=== PATIENT | male | born 1950 | race Caucasian/White ===

== ENCOUNTER → 2017-08-18 11:04 | Outpatient (CLI) | payer MEDICARE, OTHER, SELFPAY ==
[2017-08-18 12:34] LABS: Thyroid Stimulating Hormone 1.48 uIU/mL (0.47-4.68)
== END ==
PROVIDERS: Visit Provider Internal Medicine
DX: E03.9 Hypothyroidism, unspecified (principal)
CPT/HCPCS: 36415; 84443

== ENCOUNTER → 2017-10-11 14:08 | Outpatient (CLI) | payer MEDICARE, OTHER, SELFPAY ==
[2017-10-11 15:38] LABS: BUN Creatinine Ratio 21.8 (6-22); Blood Urea Nitrogen 24 mg/dL (9-20); Calcium 10.4 mg/dL (8.4-10.2); Carbon Dioxide 29 mmol/L (22-32); Chloride 99 mmol/L (98-107); Estimated Glomerular Filt Rate > 60.0 mL/min (>60); Glucose 84 mg/dL (80-110); HEMOLYSIS < 15 (0-50); Potassium 3.5 mmol/L (3.4-5.1); Sodium 143 mmol/L (137-145); Uric Acid 8.1 mg/dL (3.5-8.5)
== END ==
PROVIDERS: Visit Provider Internal Medicine
DX: M10.9 Gout, unspecified (principal); I10 Essential (primary) hypertension
CPT/HCPCS: 36415; 80048; 84550

== ENCOUNTER → 2017-11-08 14:05 | Outpatient (CLI) | payer MEDICARE, OTHER, SELFPAY ==
[2017-11-08 15:25] LABS: BUN Creatinine Ratio 21.8 (6-22); Blood Urea Nitrogen 24 mg/dL (9-20); Calcium 10.8 mg/dL (8.4-10.2); Carbon Dioxide 35 mmol/L (22-32); Chloride 94 mmol/L (98-107); Estimated Glomerular Filt Rate > 60.0 mL/min (>60); Glucose 91 mg/dL (80-110); HEMOLYSIS < 15 (0-50); Sodium 140 mmol/L (137-145); Uric Acid 7.5 mg/dL (3.5-8.5)
== END ==
PROVIDERS: PCP Internal Medicine; Visit Provider Internal Medicine
DX: I10 Essential (primary) hypertension (principal); M10.9 Gout, unspecified
CPT/HCPCS: 36415; 80048; 84550

== ENCOUNTER → 2017-12-10 14:15 | Outpatient (CLI) | payer MEDICARE, OTHER, SELFPAY ==
[2017-12-10 15:26] LABS: Alanine Aminotransferase 39 IU/L (21-72); Albumin 4.7 g/dL (3.5-5.0); Albumin Globulin Ratio 1.6 (1.0-2.8); Alkaline Phosphatase 58 U/L (38-126); Aspartate Aminotransferase 35 IU/L (17-59); BUN Creatinine Ratio 20.9 (6-22); Bilirubin Total 0.6 mg/dL (0.2-1.3); Blood Urea Nitrogen 23 mg/dL (9-20); Calcium 10.2 mg/dL (8.4-10.2); Carbon Dioxide 30 mmol/L (22-32); Chloride 101 mmol/L (98-107); Estimated Glomerular Filt Rate > 60.0 mL/min (>60); Globulin 2.9 g/dL (1.7-4.1); Glucose 88 mg/dL (80-110); HEMOLYSIS < 15 (0-50); Potassium 4.2 mmol/L (3.4-5.1); Sodium 144 mmol/L (137-145); Total Protein 7.6 g/dL (6.3-8.2)
== END ==
PROVIDERS: Internal Medicine; PCP Nurse Practitioner Family; Visit Provider Nurse Practitioner Family
DX: E87.6 Hypokalemia (principal); I10 Essential (primary) hypertension
CPT/HCPCS: 36415; 80053

== ENCOUNTER → 2018-04-13 11:49 | Outpatient (CLI) | payer MEDICARE, OTHER, SELFPAY ==
--- NOTE | 2018-04-13 11:53 | DI.US.S_ITS ---
PROCEDURE: US ABD AORTA ANEURYSM SCREEN INDICATIONS: AAA SCREEN TECHNIQUE: Real time scanning was performed of the aorta and iliac arteries, with image documentation. COMPARISON: None. FINDINGS: Aorta: Proximal aortic diameter measures 2.1 cm. Mid-aorta measures 1.7 cm. Distal aortic diameter is 1.5 cm. Iliac arteries: Right common iliac artery measures 0.9 cm. Left common iliac artery measures 0.8 cm. IMPRESSION: Negative for aneurysm. Dictated by: Pito Cartagena M.D. on 04/13/2018 at 11:38 Approved by: Pito Cartagena M.D. on 04/13/2018 at 11:39
== END ==
PROVIDERS: PCP Student in an Organized Health Care Education/Training Program; Visit Provider Student in an Organized Health Care Education/Training Program
DX: Z13.6 Encounter for screening for cardiovascular disorders (principal); F17.200 Nicotine dependence, unspecified, uncomplicated
CPT/HCPCS: 76706

== ENCOUNTER → 2018-09-20 09:16 | Outpatient (CLI) | payer MEDICARE, OTHER, SELFPAY ==
[2018-09-20 09:56] LABS: Add Manual Diff / Slide Review NO; Basophils Absolute Auto 0 /uL (0-100); Basophils Percent Auto 0.2 % (0-2); Eosinophils Absolute Auto 0 /uL (0-450); Eosinophils Percent Auto 0.4 % (2-4); Hematocrit 45.1 % (41-53); Hemoglobin 15.8 g/dL (13.5-17.5); Lymphocytes Absolute Auto 1500 /uL (1100-4500); Lymphocytes Percent Auto 16.6 % (25-40); Mean Corpuscular HGB Conc 35.2 % (30-36); Mean Corpuscular Hemoglobin 33.5 PG (26-34); Mean Corpuscular Volume 95.2 fL (80-100); Monocytes Absolute Auto 700 /uL (0-900); Monocytes Percent Auto 7.4 % (3-14); Neutrophils Absolute Auto 6700 /uL (1500-7000); Neutrophils Percent Auto 75.4 % (50-75); Platelet Count 232 X10^3/uL (150-400); Red Blood Cell Count 4.73 X10^6/uL (4.5-5.9); Red Cell Distribution Width 13.3 % (11.6-14.8); White Blood Cell Count 8.9 X10^3/uL (4.5-11.0)
[2018-09-20 10:13] LABS: Alanine Aminotransferase 47 IU/L (21-72); Albumin Globulin Ratio 1.5 (1.0-2.8); Alkaline Phosphatase 51 U/L (38-126); Aspartate Aminotransferase 34 IU/L (17-59); Bilirubin Total 0.7 mg/dL (0.2-1.3); Blood Urea Nitrogen 27 mg/dL (9-20); Calcium 10.8 mg/dL (8.4-10.2); Carbon Dioxide 26 mmol/L (22-32); Chloride 107 mmol/L (98-107); Estimated Glomerular Filt Rate > 60.0 mL/min (>60); Globulin 3.3 g/dL (1.7-4.1); Glucose 103 mg/dL (80-110); HEMOLYSIS < 15 (0-50); Potassium 3.9 mmol/L (3.4-5.1); Sodium 143 mmol/L (137-145); Total Protein 8.3 g/dL (6.3-8.2)
[2018-09-20 10:17] LABS: C-Reactive Protein Quant < 0.5 mg/dL (<1.0)
== END ==
PROVIDERS: PCP Student in an Organized Health Care Education/Training Program; Visit Provider Student in an Organized Health Care Education/Training Program
DX: R10.9 Unspecified abdominal pain (principal); R53.81 Other malaise
CPT/HCPCS: 36415; 80053; 85025; 86140

== ENCOUNTER → 2018-12-13 08:07 | Outpatient (CLI) | payer MEDICARE, OTHER, SELFPAY ==
--- NOTE | 2018-12-13 | DI.MRI.S_ITS ---
PROCEDURE: MR SHOULDER RT WO CON INDICATIONS: Impingement syndrome of right shoulder TECHNIQUE: Noncontrast oblique coronal T2 fast spin echo with fat saturation, oblique sagittal T1 spin echo and T2 fast spin echo with fat saturation, axial T1 spin echo and T2 fast spin echo with fat saturation through the shoulder. COMPARISON: [facility], MR, SHOULDER WITHOUT CONTRAST, 01/27/2013, 7:53. [facility], MR, SHOULDER WITHOUT CONTRAST, 01/10/2013, 12:54. FINDINGS: Image quality: Diagnostic. Rotator cuff: Mild susceptibility artifact appears to be present overlying the distal aspect of the supraspinatus tendon near its insertion. The tear appears to be prominent thinning and moderate to high grade articular surface partial thickness tearing. The possibility of a small perforating full-thickness tear is difficult to exclude. Corresponding tendinopathy is present. There is mild increased signal involving the subscapularis and infraspinatus tendons. There may be areas of low to moderate grade articular surface partial thickness tearing of the subscapularis tendon. The teres minor tendon is intact. Moderate atrophy of the teres minor muscle is present. No additional areas of significant rotator cuff muscle atrophy are evident. Bones and bursae: No acute fracture, dislocation, or suspicious osseous lesion is identified involving the osseous structures of the right shoulder. There mild degenerative changes of the glenohumeral joint. There appear to be postsurgical changes of the acromioclavicular joint. There is a small glenohumeral joint effusion. A moderate amount of fluid is contained within the subacromial subdeltoid bursa. Capsule and soft tissues: Evaluation of the labrum and the glenohumeral ligaments is difficult to evaluate without intra-articular contrast. However, there is a small superior labral tear extending from the 11 o'clock position to the 1 o'clock position. There may be a small separate posteroinferior labral tear within the 7 o'clock position. The long head of the biceps tendon is partially subluxed from the bicipital groove; however, does appear to attach to the superior aspect of the glenoid. Thickening and increased signal involving the intra-articular portion of this tendon is present. No acute injuries are suspected involving the glenohumeral ligaments. IMPRESSION: 1. At least moderate to high-grade partial-thickness tearing of the distal supraspinatus tendon. A small perforating full-thickness tear is difficult to exclude. 2. Low to moderate grade partial-thickness tearing of the articular surface of the subscapularis tendon with corresponding tendinopathy. 3. Mild infraspinatus tendinopathy. 4. Moderate grade intrasubstance partial thickness tearing and tendinopathy involve the intra-articular portion of the biceps tendon. Disruption of the transverse ligament of the inter-bicipital groove appears present. 5. Small superior and posteroinferior labral tears. 6. Fluid within the subacromial subdeltoid bursa may represent bursitis. Please correlate clinically. Dictated by: Willard Abdullahi M.D. on 12/13/2018 at 9:12 Approved by: Willard Abdullahi M.D. on 12/13/2018 at 9:24
== END ==
PROVIDERS: PCP Student in an Organized Health Care Education/Training Program; Visit Provider Orthopaedic Surgery
DX: M75.41 Impingement syndrome of right shoulder (principal); M75.111 Incomplete rotator cuff tear or rupture of right shoulder, not specified as traumatic; S46.211A Strain of muscle, fascia and tendon of other parts of biceps, right arm, initial encounter
CPT/HCPCS: 73221

== ENCOUNTER → 2019-02-02 11:24 | Outpatient (CLI) | payer MEDICARE, OTHER, SELFPAY ==
[2019-02-02 12:12] LABS: Add Manual Diff / Slide Review NO; Basophils Absolute Auto 0 /uL (0-100); Basophils Percent Auto 0.5 % (0-2); Eosinophils Absolute Auto 0 /uL (0-450); Eosinophils Percent Auto 0.6 % (2-4); Hematocrit 44.2 % (41-53); Hemoglobin 15.3 g/dL (13.5-17.5); Lymphocytes Absolute Auto 1500 /uL (1100-4500); Mean Corpuscular HGB Conc 34.5 % (30-36); Mean Corpuscular Hemoglobin 32.8 PG (26-34); Mean Corpuscular Volume 94.8 fL (80-100); Monocytes Absolute Auto 600 /uL (0-900); Monocytes Percent Auto 8.1 % (3-14); Neutrophils Absolute Auto 5700 /uL (1500-7000); Neutrophils Percent Auto 71.8 % (50-75); Platelet Count 228 X10^3/uL (150-400); Red Blood Cell Count 4.66 X10^6/uL (4.5-5.9); Red Cell Distribution Width 12.8 % (11.6-14.8)
[2019-02-02 12:43] LABS: BUN Creatinine Ratio 22.7 (6-22); Blood Urea Nitrogen 25 mg/dL (9-20); Calcium 10.6 mg/dL (8.4-10.2); Carbon Dioxide 30 mmol/L (22-32); Chloride 99 mmol/L (98-107); Estimated Glomerular Filt Rate > 60.0 mL/min (>60); Glucose 82 mg/dL (80-110); HEMOLYSIS < 15 (0-50); Potassium 4.3 mmol/L (3.4-5.1); Sodium 140 mmol/L (137-145)
== END ==
PROVIDERS: PCP Student in an Organized Health Care Education/Training Program; Visit Provider Student in an Organized Health Care Education/Training Program
DX: K92.1 Melena (principal); K92.2 Gastrointestinal hemorrhage, unspecified; N18.9 Chronic kidney disease, unspecified
CPT/HCPCS: 80048; 85025

== ENCOUNTER → 2019-02-03 11:28 | Outpatient (CLI) | payer MEDICARE, OTHER, SELFPAY ==
[2019-02-03 13:17] LABS: Occult Blood 1 Negative (Negative)
== END ==
PROVIDERS: PCP Student in an Organized Health Care Education/Training Program; Visit Provider Student in an Organized Health Care Education/Training Program
DX: K92.1 Melena (principal)
CPT/HCPCS: 82270; 86677

== ENCOUNTER → 2019-02-27 15:01 | Outpatient (CLI) | payer MEDICARE, OTHER, SELFPAY ==
[2019-02-27 16:14] LABS: Phosphorous 4.2 mg/dL (2.3-3.7)
[2019-02-27 16:30] LABS: Vitamin D 25 Hydroxy (D3) 59.9 ng/mL (30.0-100.0)
[2019-03-02 14:30] LABS: Parathyroid Hormone Int 14 pg/mL (14-64)
== END ==
PROVIDERS: PCP Student in an Organized Health Care Education/Training Program; Visit Provider Student in an Organized Health Care Education/Training Program
DX: E83.52 Hypercalcemia (principal)
CPT/HCPCS: 36415; 82306; 83970; 84100

== ENCOUNTER → 2019-04-13 14:46 | Outpatient (CLI) | payer MEDICARE, OTHER, SELFPAY ==
[2019-04-13 16:32] LABS: Alanine Aminotransferase 45 IU/L (<50); Albumin 4.9 g/dL (3.5-5.0); Albumin Globulin Ratio 1.4 (1.0-2.8); Alkaline Phosphatase 67 U/L (38-126); Aspartate Aminotransferase 36 IU/L (17-59); BUN Creatinine Ratio 21.8 (6-22); Bilirubin Total 0.8 mg/dL (0.2-1.3); Blood Urea Nitrogen 24 mg/dL (9-20); Calcium 10.7 mg/dL (8.4-10.2); Carbon Dioxide 29 mmol/L (22-32); Chloride 99 mmol/L (98-107); Estimated Glomerular Filt Rate > 60.0 mL/min (>60); Globulin 3.4 g/dL (1.7-4.1); Glucose 77 mg/dL (80-110); HEMOLYSIS < 15 (0-50); Lipase 84 U/L (23-300); Sodium 139 mmol/L (137-145); Total Protein 8.3 g/dL (6.3-8.2)
[2019-04-13 17:04] LABS: TSH w/ Reflex to FT4 0.33 uIU/mL (0.47-4.68)
[2019-04-13 17:30] LABS: Free T4, Direct Thyroxine 1.34 ng/dL (0.78-2.19)
[2019-04-15 13:44] LABS: Ionized Calcium 5.2 mg/dL (4.8-5.6)
[2019-04-18 13:58] LABS: Albumin 4.3 g/dL (3.8-4.8); Alpha 1 Globulin 0.3 g/dL (0.2-0.3); Alpha 2 Globulin 1.1 g/dL (0.5-0.9); Beta 1 Globulin 0.4 g/dL (0.4-0.6); Gamma Globulin 0.8 g/dL (0.8-1.7); Protein, Total 7.3 g/dL (6.1-8.1)
== END ==
PROVIDERS: PCP Student in an Organized Health Care Education/Training Program; Visit Provider Student in an Organized Health Care Education/Training Program
DX: E83.52 Hypercalcemia (principal); M10.9 Gout, unspecified; R91.1 Solitary pulmonary nodule; R10.9 Unspecified abdominal pain; K52.9 Noninfective gastroenteritis and colitis, unspecified
CPT/HCPCS: 36415; 80053; 82330; 83519; 83690; 84155; 84165; 84439; 84443

== ENCOUNTER → 2019-06-15 09:39 | Outpatient (CLI) | payer MEDICARE, OTHER, SELFPAY ==
--- NOTE | 2019-06-15 | DI.US.S_ITS ---
PROCEDURE: US ABDOMEN COMPLETE INDICATIONS: RUQ PAIN TECHNIQUE: Real-time scanning was performed of the abdominal and retroperitoneal organs, with image documentation. COMPARISON: [facility], US ABDOMEN/RENAL AND/OR RETROPERITONEAL, 04/28/2005, 14:15. FINDINGS: Liver: Liver is diffusely increased in echogenicity. No focal hepatic abnormalities identified. Normal hepatic size. Gallbladder: Tiny stones present involving gallbladder fundus; otherwise normal appearance of the gallbladder. Biliary ducts: Intrahepatic bile ducts are non-dilated. Extrahepatic bile duct caliber measures 5.3 mm. Normal is 6-7 mm or less in diameter, or 10 mm or less post-cholecystectomy. Pancreas: Visualized portions of the pancreas are sonographically normal. Spleen: Spleen is normal in size and homogeneous in echotexture. Kidneys: Kidneys are normal in size and echotexture. Right kidney measures 10.3 cm long; left kidney measures 10.6 cm long. No hydronephrosis or nephrolithiasis. No solid masses. Aorta: Visualized aorta is normal in caliber at less than 3 cm. Iliacs: Proximal common iliac arteries are normal in caliber at less than 2.5 cm. IVC: Intrahepatic inferior vena cava is patent. Miscellaneous: No free abdominal fluid. IMPRESSION: Cholelithiasis without acute cholecystitis. If sonographically occult acute cholecystitis is suspected, nuclear medicine HIDA scan could be performed for further evaluation. Dictated by: Aram PRINCE Interpreted: Jessica Vaughn MD on 06/15/2019 at 11:09 Approved by: Jessica Vaughn M.D. on 06/15/2019 at 16:47
[2019-06-15 11:18] LABS: Alanine Aminotransferase 40 IU/L (<50); Albumin 4.9 g/dL (3.5-5.0); Albumin Globulin Ratio 1.6 (1.0-2.8); Alkaline Phosphatase 67 U/L (38-126); Aspartate Aminotransferase 38 IU/L (17-59); BUN Creatinine Ratio 17.7 (6-22); Bilirubin Total 0.7 mg/dL (0.2-1.3); Blood Urea Nitrogen 20 mg/dL (9-20); Calcium 10.5 mg/dL (8.4-10.2); Carbon Dioxide 29 mmol/L (22-32); Chloride 103 mmol/L (98-107); Estimated Glomerular Filt Rate > 60.0 mL/min (>60); Globulin 3.1 g/dL (1.7-4.1); Glucose 95 mg/dL (80-110); HEMOLYSIS < 15 (0-50); Lipase 46 U/L (23-300); Sodium 143 mmol/L (137-145); Uric Acid 7.4 mg/dL (3.5-8.5)
== END ==
PROVIDERS: PCP Student in an Organized Health Care Education/Training Program; Referring Provider Internal Medicine; Visit Provider Internal Medicine
DX: R10.11 Right upper quadrant pain (principal); K80.20 Calculus of gallbladder without cholecystitis without obstruction; M10.00 Idiopathic gout, unspecified site
CPT/HCPCS: 36415; 76700; 80053; 83690; 84550

== ENCOUNTER → 2019-06-27 08:03 | Outpatient (CLI) | payer MEDICARE, OTHER, SELFPAY ==
--- NOTE | 2019-06-27 | DI.NM.S_ITS ---
PROCEDURE: NM HIDA WITH CCK PHARMACEUTICAL: 5.4 mCi Tc-99m mebrofenin IV; 1.6 mcg CCK IV. INDICATIONS: Right upper quadrant pain TECHNIQUE: Following intravenous administration of Tc-99m mebrofenin, sequential anterior abdominal images were obtained. To evaluate the contractile response of the gallbladder in response to Cholecystokinin (CCK), sincalide (0.02 ?g/kg) was administered by slow intravenous infusion approximately 60 minutes after the administration of the radiopharmaceutical. Sequential imaging was continued for 30 minutes after the start of CCK infusion. Gallbladder ejection fraction was calculated. COMPARISON: [facility], , US ABDOMEN COMPLETE, 06/15/2019, 9:56. FINDINGS: Biliary scan: There is normal tracer uptake and excretion by the liver. There is normal visualization of the intrahepatic ducts, common bile duct, and gallbladder. There is normal tracer transit into the duodenum. Mild bile reflux into the stomach. CCK stimulation: There is normal contractile response of the gallbladder to CCK infusion. The calculated gallbladder ejection fraction is 87%; normal values are above 35%. IMPRESSION: 1. Normal filling of gallbladder. No evidence for acute cholecystitis. 2. Normal contractile response of gallbladder to CCK stimulation. Dictated by: Lorin Ramires M.D. on 06/27/2019 at 16:10 Approved by: Lorin Ramires M.D. on 06/27/2019 at 16:13
== END ==
PROVIDERS: PCP Internal Medicine; Referring Provider Student in an Organized Health Care Education/Training Program; Visit Provider Internal Medicine
DX: R10.11 Right upper quadrant pain (principal)
CPT/HCPCS: 78227; A9537; J2805

== ENCOUNTER → 2019-10-21 08:28 | Outpatient (CLI) | payer MEDICARE, OTHER, SELFPAY ==
[2019-10-21 09:44] LABS: Alanine Aminotransferase 51 IU/L (<50); Albumin 4.7 g/dL (3.5-5.0); Albumin Globulin Ratio 1.8 (1.0-2.8); Alkaline Phosphatase 63 U/L (38-126); Aspartate Aminotransferase 45 IU/L (17-59); Bilirubin Total 0.8 mg/dL (0.2-1.3); Blood Urea Nitrogen 23 mg/dL (9-20); Calcium 10.1 mg/dL (8.4-10.2); Carbon Dioxide 26 mmol/L (22-32); Chloride 102 mmol/L (98-107); Cholesterol 197 mg/dL (140-199); Estimated Glomerular Filt Rate > 60.0 mL/min (>60); Globulin 2.6 g/dL (1.7-4.1); Glucose 116 mg/dL (80-110); HDL Cholesterol 52 mg/dL (40-60); HEMOLYSIS < 15 (0-50); LDL Cholesterol Calculated 102 mg/dL (<100); Potassium 4.3 mmol/L (3.4-5.1); Sodium 136 mmol/L (137-145); Total Protein 7.3 g/dL (6.3-8.2); Triglycerides 215 mg/dL (35-150); Uric Acid 6.1 mg/dL (3.5-8.5)
[2019-10-21 09:49] LABS: Free T4, Direct Thyroxine 1.34 ng/dL (0.78-2.19)
[2019-10-21 10:03] LABS: Thyroid Stimulating Hormone 0.294 uIU/mL (0.47-4.68)
[2019-10-22 07:07] LABS: Triiodothyronine T3 Total 103 ng/dL (71-180)
== END ==
PROVIDERS: PCP Internal Medicine; Referring Provider Internal Medicine; Visit Provider Internal Medicine
DX: M10.9 Gout, unspecified (principal); E03.9 Hypothyroidism, unspecified; I10 Essential (primary) hypertension
CPT/HCPCS: 36415; 80053; 80061; 84439; 84443; 84480; 84550

== ENCOUNTER → 2020-05-15 09:02 | Outpatient (CLI) | payer MEDICARE, SELFPAY ==
--- NOTE | 2020-05-15 09:04 | DI.US.S_ITS ---
PROCEDURE: US ABDOMEN COMPLETE INDICATIONS: abdominal pain TECHNIQUE: Real-time scanning was performed of the abdominal and retroperitoneal organs, with image documentation. COMPARISON: [facility], US, US ABDOMEN COMPLETE, 06/15/2019, 9:56. FINDINGS: Liver: The liver demonstrates mildly prominent size. The liver demonstrates generalized moderately increased echogenicity. This decreases ultrasound sensitivity for detection of hepatic masses. Gallbladder: No findings of gallstones or sludge are seen. The gallbladder wall is not thickened, measuring 3 mm or less. No specific pericholecystic fluid is seen. The sonographic Adrian sign is negative. Biliary ducts: Intrahepatic bile ducts are non-dilated. Extrahepatic bile duct caliber measures 2-3 mm. Normal is 6-7 mm or less in diameter, or 10 mm or less post-cholecystectomy. Pancreas: Visualized portions of the pancreas are sonographically normal. Spleen: Spleen is normal in size and homogeneous in echotexture. Kidneys: Kidneys are normal in size and echotexture. Right kidney measures 10.7 cm long; left kidney measures 11 cm long. No hydronephrosis or nephrolithiasis. No solid masses. Aorta: Visualized aorta is normal in caliber at less than 3 cm. Iliacs: Proximal common iliac arteries are normal in caliber at less than 2.5 cm. IVC: Intrahepatic inferior vena cava is patent. Miscellaneous: No free abdominal fluid. IMPRESSION: The gallbladder demonstrates a normal sonographic appearance. No biliary dilatation is seen. The liver demonstrates increased echogenicity. This finding is nonspecific, yet it is most commonly attributed to fatty infiltration. Dictated by: Pito Cartagena M.D. on 05/15/2020 at 10:02 Approved by: Pito Cartagena M.D. on 05/15/2020 at 10:03
[2020-05-15 10:30] LABS: Alanine Aminotransferase 68 IU/L (<50); Albumin 4.6 g/dL (3.5-5.0); Albumin Globulin Ratio 1.6 (1.0-2.8); Alkaline Phosphatase 64 U/L (38-126); Aspartate Aminotransferase 73 IU/L (17-59); BUN Creatinine Ratio 17.7 (6-22); Blood Urea Nitrogen 22 mg/dL (9-20); Calcium 9.9 mg/dL (8.4-10.2); Carbon Dioxide 31 mmol/L (22-32); Chloride 101 mmol/L (98-107); Cholesterol 181 mg/dL (140-199); Globulin 2.9 g/dL (1.7-4.1); Glucose 104 mg/dL (80-110); HDL Cholesterol 57 mg/dL (40-60); HEMOLYSIS < 15 (0-50); LDL Cholesterol Calculated 99 mg/dL (<100); Magnesium 1.8 mg/dL (1.6-2.3); Potassium 4.4 mmol/L (3.4-5.1); Sodium 138 mmol/L (137-145); Total Protein 7.5 g/dL (6.3-8.2); Triglycerides 125 mg/dL (35-150)
[2020-05-15 11:11] LABS: Thyroid Stimulating Hormone 0.733 uIU/mL (0.47-4.68)
== END ==
PROVIDERS: PCP Nurse Practitioner; Referring Provider Nurse Practitioner; Visit Provider Nurse Practitioner
DX: I12.9 Hypertensive chronic kidney disease with stage 1 through stage 4 chronic kidney disease, or unspecified chronic kidney disease (principal); N18.9 Chronic kidney disease, unspecified; R10.9 Unspecified abdominal pain; E03.9 Hypothyroidism, unspecified; E78.5 Hyperlipidemia, unspecified; R25.2 Cramp and spasm; Z79.899 Other long term (current) drug therapy
CPT/HCPCS: 36415; 76700; 80053; 80061; 83735; 84443

== ENCOUNTER → 2020-05-29 12:48 | Outpatient (CLI) | payer MEDICARE, SELFPAY ==
[2020-05-30 04:44] LABS: HBsAg Screen Negative (Negative); Hepatitis A Antibody IgM Negative (Negative); Hepatitis B Core Antibody IgM Negative (Negative); Hepatitis C Antibody 0.1 s/co ratio (0.0-0.9)
== END ==
PROVIDERS: PCP Nurse Practitioner; Referring Provider Nurse Practitioner; Visit Provider Nurse Practitioner
DX: R79.89 Other specified abnormal findings of blood chemistry (principal)
CPT/HCPCS: 36415; 80074

== ENCOUNTER → 2020-08-03 13:05 | Outpatient (CLI) | payer MEDICARE, SELFPAY ==
--- NOTE | 2020-08-03 13:08 | DI.MRI.S_ITS ---
PROCEDURE: MR LUMBAR SPINE WO CON INDICATIONS: Radiculopathy, lumbar region TECHNIQUE: Noncontrast sagittal T1 spin echo and T2 fast echo, coronal T2, sagittal STIR, axial T1 and T2 fast spin echo through the lumbar spine. COMPARISON: [facility], , L-SPINE WITHOUT CONTRAST, 12/19/2007, 9:45. FINDINGS: Image quality: Excellent. Alignment and Curvature: There is loss of normal lumbar lordosis. There is mild, grade 1 retrolisthesis of L2 on L3, L4 on L5, and L5 on S1. Bone Marrow: Marrow is of normal overall signal. No acute vertebral body compression fractures. There is moderate reactive signal within the endplates adjacent to the L3-L4, L4-L5, and L5-S1 intervertebral discs. Mild reactive signal within the endplates adjacent to the T11-T12, T12-L1, and L1-L2 intervertebral discs. L3 laminectomy. Left L4-L5 hemilaminotomy. Spinal Cord: Conus medullaris terminates at the mid L1 level. Visualized cord demonstrates normal signal and size. Paraspinous Soft Tissues: No paravertebral masses. T12-L1: Moderate disc height loss and desiccation. Mild diffuse disc bulge. Mild facet and ligamentum flavum hypertrophy. Mild canal stenosis. No foraminal stenosis. L1-L2: Mild disc height loss and desiccation. Mild diffuse disc bulge. Mild facet and ligamentum flavum hypertrophy. Mild epidural lipomatosis. Mild canal stenosis. Mild bilateral foraminal stenosis. No significant change. L2-L3: Moderate disc height loss and desiccation. Moderate diffuse disc bulge. Mild facet and ligamentum flavum hypertrophy. Mild canal stenosis. Mild right and moderate left foraminal stenosis. No significant change. L3-L4: Severe disc height loss and desiccation. Moderate diffuse disc bulge/osteophyte with superimposed left far lateral protrusion/osteophyte. Mild bilateral facet hypertrophy. Mild canal stenosis. Moderate to severe left and moderate right foraminal stenosis. Mild left L3 nerve root compression. No significant change. L4-L5: Severe disc height loss and desiccation. Mild diffuse disc bulge. Mild facet and ligamentum flavum hypertrophy. Mild canal stenosis. Moderate right and mild left foraminal stenosis. No significant change. L5-S1: Moderate disc height loss and desiccation. Moderate diffuse disc bulge with superimposed right paracentral protrusion. Moderate facet and ligamentum flavum hypertrophy. Moderate canal stenosis. Moderate subarticular foraminal stenosis bilaterally. No significant change. IMPRESSION: 1. Multilevel degenerative disc and facet disease, as well as ligamentum flavum hypertrophy and epidural lipomatosis. 2. Multilevel canal stenoses, worst at L5-S1, where there is moderate canal stenosis. 3. Multilevel foraminal stenoses, worst at L3-L4 where there is associated intraforaminal nerve root compression. Recommend correlation with clinical symptoms to ascertain relevance of this finding. Dictated by: Jessica Vaughn M.D. on 08/05/2020 at 9:12 Approved by: Jessica Vaughn M.D. on 08/05/2020 at 9:37
== END ==
PROVIDERS: PCP Nurse Practitioner; Referring Provider Orthopaedic Surgery; Visit Provider Orthopaedic Surgery
DX: M51.16 Intervertebral disc disorders with radiculopathy, lumbar region (principal); M51.17 Intervertebral disc disorders with radiculopathy, lumbosacral region; M48.061 Spinal stenosis, lumbar region without neurogenic claudication; M48.07 Spinal stenosis, lumbosacral region
CPT/HCPCS: 72148

== ENCOUNTER → 2020-08-28 10:35 | Outpatient (CLI) | payer MEDICARE, SELFPAY ==
[2020-08-28 12:20] LABS: Prostate Specific Antigen 3.42 ng/mL (0.10-4.00)
== END ==
PROVIDERS: PCP Nurse Practitioner; Referring Provider Specialist; Visit Provider Specialist
DX: Z12.5 Encounter for screening for malignant neoplasm of prostate (principal)
CPT/HCPCS: 36415; 84153

== ENCOUNTER → 2020-09-04 11:53 | Outpatient (CLI) | payer MEDICARE, SELFPAY | PROVIDERS: PCP Nurse Practitioner; Visit Provider Specialist | DX: N39.0 Urinary tract infection, site not specified (principal) | CPT/HCPCS: 51798; 81002; 87086; 99214 ==

== ENCOUNTER → 2020-10-10 08:08 | Outpatient (CLI) | payer MEDICARE, SELFPAY ==
[2020-10-10 09:19] LABS: Alanine Aminotransferase 42 IU/L (<50); Albumin 4.5 g/dL (3.5-5.0); Albumin Globulin Ratio 1.5 (1.0-2.8); Alkaline Phosphatase 61 U/L (38-126); Aspartate Aminotransferase 63 IU/L (17-59); BUN Creatinine Ratio 24.2 (6-22); Bilirubin Total 0.7 mg/dL (0.2-1.3); Blood Urea Nitrogen 31 mg/dL (9-20); Calcium 10.1 mg/dL (8.4-10.2); Carbon Dioxide 29 mmol/L (22-32); Chloride 101 mmol/L (98-107); Cholesterol 217 mg/dL (140-199); Estimated Glomerular Filt Rate 55.7 mL/min (>60); Glucose 113 mg/dL (80-110); HDL Cholesterol 53 mg/dL (40-60); HEMOLYSIS < 15 (0-50); LDL Cholesterol Calculated 121 mg/dL (<100); Potassium 4.1 mmol/L (3.4-5.1); Sodium 138 mmol/L (137-145); Total Protein 7.5 g/dL (6.3-8.2); Triglycerides 217 mg/dL (35-150)
[2020-10-10 09:46] LABS: Thyroid Stimulating Hormone 0.065 uIU/mL (0.47-4.68)
[2020-10-10 09:48] LABS: Creatinine Urine Random 100.7 mg/dL
[2020-10-10 09:55] LABS: Microalbumi Creatinin Ratio Ur 6.9 ug/mg CR (<30); Microalbumin Urine Random 0.7 mg/dL (0-1.6)
== END ==
PROVIDERS: PCP Nurse Practitioner; Referring Provider Nurse Practitioner; Visit Provider Nurse Practitioner
DX: E03.9 Hypothyroidism, unspecified (principal); I10 Essential (primary) hypertension; E78.2 Mixed hyperlipidemia; F33.9 Major depressive disorder, recurrent, unspecified; N18.2 Chronic kidney disease, stage 2 (mild); Z79.899 Other long term (current) drug therapy
CPT/HCPCS: 36415; 80053; 80061; 82043; 82570; 84443

== ENCOUNTER 2020-10-19 21:19 | Emergency (ER) | payer MEDICARE, SELFPAY ==
[2020-10-19 21:49] VITALS: BP 105/60; PULSE 97; RESP 18; TEMP 36.6; O2SAT 96; BMI 28.2
[2020-10-19 22:02] VITALS: PULSE 98; O2SAT 97
[2020-10-19 22:04] VITALS: BP 110/61; PULSE 98; RESP 22; O2SAT 96
[2020-10-19 22:27] LABS: Add Manual Diff / Slide Review NO; Basophils Absolute Auto 0 /uL (0-100); Basophils Percent Auto 0.4 % (0-2); Eosinophils Absolute Auto 100 /uL (0-450); Eosinophils Percent Auto 0.7 % (2-4); Hematocrit 43.8 % (41-53); Hemoglobin 15.1 g/dL (13.5-17.5); Lymphocytes Absolute Auto 1900 /uL (1100-4500); Mean Corpuscular HGB Conc 34.4 % (30-36); Mean Corpuscular Hemoglobin 32.6 PG (26-34); Mean Corpuscular Volume 94.6 fL (80-100); Monocytes Absolute Auto 900 /uL (0-900); Monocytes Percent Auto 8.2 % (3-14); Neutrophils Absolute Auto 8200 /uL (1500-7000); Neutrophils Percent Auto 73.7 % (50-75); Platelet Count 284 X10^3/uL (150-400); Red Blood Cell Count 4.63 X10^6/uL (4.5-5.9); Red Cell Distribution Width 13.8 % (11.6-14.8); White Blood Cell Count 11.1 X10^3/uL (4.5-11.0)
[2020-10-19 22:28] LABS: Alanine Aminotransferase 41 IU/L (<50); Albumin 4.4 g/dL (3.5-5.0); Albumin Globulin Ratio 1.6 (1.0-2.8); Alkaline Phosphatase 59 U/L (38-126); Aspartate Aminotransferase 51 IU/L (17-59); BUN Creatinine Ratio 14.3 (6-22); Bilirubin Total 0.5 mg/dL (0.2-1.3); Blood Urea Nitrogen 33 mg/dL (9-20); Calcium 9.5 mg/dL (8.4-10.2); Carbon Dioxide 20 mmol/L (22-32); Chloride 105 mmol/L (98-107); Creatine Kinase 645 U/L (55-170); Estimated Glomerular Filt Rate 28.3 mL/min (>60); Globulin 2.8 g/dL (1.7-4.1); Glucose 160 mg/dL (80-110); HEMOLYSIS < 15 (0-50); Lipase 144 U/L (23-300); Potassium 4.1 mmol/L (3.4-5.1); Sodium 140 mmol/L (137-145); Total Protein 7.2 g/dL (6.3-8.2)
[2020-10-19 22:30] VITALS: BP 87/53; PULSE 94; RESP 15; O2SAT 93
[2020-10-19] MEDS: SODIUM CHLORIDE 0.9% 1,000 ML 1000 ML IV (22:37)
[2020-10-19 22:40] LABS: Troponin I < 0.012 ng/mL (0.01-0.034)
[2020-10-19 22:43] LABS: CKMB % Relative Index 1.1 % (1.5-5.0); Creatine Kinase MB 7.23 ng/mL (<2.37)
[2020-10-19 23:00] VITALS: BP 117/68; PULSE 92; RESP 26; O2SAT 96
--- NOTE | 2020-10-19 23:01 | ED_ITS ---
HPI - General Adult General Chief complaint: Dizziness Stated complaint: states almost passed out twice today Time Seen by Provider: 10/19/20 21:56 Source: patient Mode of arrival: Ambulatory Limitations: no limitations History of Present Illness HPI narrative: Patient is a 70-year-old male. Does have a history of high blood pressure. Is on medications for this. He states that over the past couple months he has had episodes where he becomes very lightheaded. During these times he takes his blood pressure and it is low. He has talk with his primary doctor about this. Was recently taken off of his hydrochlorothiazide. He states that today he was at a wedding when the episodes happened multiple times. He was not able to take his blood pressure the time but it feels just like what it has been low in the past. No chest pain. No shortness of breath. He actually did not pass out. He also states that he did not have much water to drink today. He also had some alcoholic beverages today. Him into the emergency department because of how he was feeling. Related Data Previous Rx's Medication Instructions Recorded amlodipine 10 mg tablet 10 mg PO DAILY #90 tab 05/11/19 betamethasone valerate 0.1 % 1 applic TOP BID #15 gram 05/07/20 topical cream levothyroxine 125 mcg tablet 125 mcg PO DAILY #90 tab 05/24/20 (Levoxyl) allopurinol 100 mg tablet 200 mg PO DAILY #180 tab 06/11/20 venlafaxine 37.5 mg 75 mg PO QPM #180 cap 07/18/20 capsule,extended release 24 hr cyclobenzaprine 10 mg tablet 10 mg PO BEDTIME PRN #20 tab 07/24/20 losartan 100 mg tablet 100 mg PO DAILY #90 tab 08/13/20 celecoxib 100 mg capsule 100 mg PO BID #180 cap 09/10/20 dicyclomine 20 mg tablet 20 mg PO TID PRN #30 tab 09/11/20 Allergies Allergy/AdvReac Type Severity Reaction Status Date / Time metronidazole [METRONIDAZOLE] Allergy Unknown Verified 10/19/20 21:48 diflunisal Allergy Verified 10/19/20 21:48 PAIN MANAGEMENT CONTRACT Allergy Unknown Uncoded 10/19/20 21:48 Review of Systems Constitutional Comments: No fevers Eyes Comments: No vision changes ENT Ears, Nose, Mouth, and Throat: Reports system reviewed and no additional complaints, except as documented, Denies vertigo and Reports dizziness Cardiovascular Cardiovascular: Denies chest pain, Reports lightheadedness and Denies dyspnea Respiratory Respiratory: Denies cough and Denies dyspnea Gastrointestinal Gastrointestinal: Reports system reviewed and no additional complaints, except as documented Musculoskeletal Musculoskeletal: Reports system reviewed and no additional complaints, except as documented Integumentary/Breasts Skin/Breast: Reports system reviewed and no additional complaints, except as documented Neurologic Neurologic: Reports system reviewed and no additional complaints, except as documented, Denies abnormal speech, Denies vertigo and Reports dizziness Psychiatric Psychiatric: Reports system reviewed and no additional complaints, except as documented Hematologic/Lymphatic On Anticoagulants: No Allergic/Immunologic Allergic/Immunologic: Reports system reviewed and no additional complaints, except as documented Patient History Medical History Arthralgia Chronic back pain Chronic kidney disease Chronic sinusitis (2015) Colon polyps (2006) Discoloration of skin of face Gout (2009) Gout Hyperlipidemia Hypertension Hypothyroidism (2012) Lower urinary tract symptoms (LUTS) Osteoarthritis Osteoarthritis Peripheral neuropathy Peripheral neuropathy, idiopathic Polyp of colon (01/01/14) 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) Pulmonary nodule Sinusitis Sleep apnea Surgical History History of arthroscopy of left knee History of bilateral carpal tunnel release History of lumbar surgery History of surgery Social History Smoking Status: Current every day smoker Smoking Status: Current every day smoker tobacco type: vaping Substance Use Type: does not use Exam Initial Vital Signs Initial Vital Signs: Vital Signs Temperature 97.9 F 10/19/20 21:49 Pulse Rate 97 H 10/19/20 21:49 Respiratory Rate 18 10/19/20 21:49 Blood Pressure 105/60 10/19/20 21:49 Pulse Oximetry 96 10/19/20 21:49 Const General: cooperative and healthy appearing HENMT Head: normal to inspection and normocephalic Eyes General: appearance normal, both eyes and all related structures Resp Effort & Inspection: normal respiratory effort Auscultation: clear to auscultation bilaterally Cardio Rate: regular rate Rhythm: regular rhythm GI Inspection: normal to inspection Skin Lesions: no lesions Neuro General: patient alert, patient awake, patient oriented x3 and moves all extremities Extrem General: normal to inspection and capillary refill normal Psych Appearance: grossly normal and well kempt Course Orders Ordered: ED Orders 10/19/20 21:57 EKG-12 Lead Stat 10/19/20 22:10 Complete Blood Count AUTO DIFF Stat Comprehensive Metabolic Panel Stat Lipase Stat Troponin & CK Cardiac Panel Stat Discontinued Medications Sodium Chloride (Normal Saline 0.9%) 1,000 mls @ 1,000 mls/hr IV BOLUS ONE Stop: 10/19/20 22:55 Last Infusion: 10/19/20 23:43 Dose: 0 mls/hr Documented by: Admin: 10/19/20 22:37 Dose: 1,000 mls/hr Documented by: CTRCLAIR Vital Signs Vital signs: Vital Signs - 8 hr 10/19/20 22:30 10/19/20 23:00 10/19/20 23:30 Pulse Rate 94 H 92 H 97 H Respiratory Rate 15 26 H 27 H Blood Pressure 87/53 L 117/68 Pulse Oximetry 93 96 95 Medical Decision Making Lab Data Lab results reviewed: Yes I reviewed the patient's lab results. Result diagrams: 10/19/20 22:10 10/19/20 22:10 Labs: Lab Results 10/19/20 10/19/20 Range/Units 22:10 22:10 WBC 11.1 H (4.5-11.0) X10^3/uL RBC 4.63 (4.5-5.9) X10^6/uL Hgb 15.1 (13.5-17.5) g/dL Hct 43.8 (41-53) % MCV 94.6 (80-100) fL MCH 32.6 (26-34) PG MCHC 34.4 (30-36) % RDW 13.8 (11.6-14.8) % Plt Count 284 (150-400) X10^3/uL Neut % (Auto) 73.7 (50-75) % Lymph % (Auto) 17.0 L (25-40) % [place] % (Auto) 8.2 (3-14) % Eos % (Auto) 0.7 L (2-4) % Baso % (Auto) 0.4 (0-2) % Neut # (Auto) 8200 H (3380-0219) /uL Lymph # (Auto) 1900 (5444-0456) /uL [place] # (Auto) 900 (0-900) /uL Eos # (Auto) 100 (0-450) /uL Baso # (Auto) 0 (0-100) /uL Sodium 140 (137-145) mmol/L Potassium 4.1 (3.4-5.1) mmol/L Chloride 105 (98-107) mmol/L Carbon Dioxide 20 L (22-32) mmol/L BUN 33 H (9-20) mg/dL Creatinine 2.30 H (0.66-1.25) mg/dL Estimated GFR 28.3 L (>60) mL/min BUN/Creatinine Ratio 14.3 (6-22) Glucose 160 H (80-110) mg/dL Calcium 9.5 (8.4-10.2) mg/dL Total Bilirubin 0.5 (0.2-1.3) mg/dL AST 51 (17-59) IU/L ALT 41 (<50) IU/L Alkaline Phosphatase 59 (38-126) U/L Total Creatine Kinase 645 H (55-170) U/L CK-MB (CK-2) 7.23 H (<2.37) ng/mL CK-MB (CK-2) Rel Index 1.1 L (1.5-5.0) % Troponin I < 0.012 (0.01-0.034) ng/mL Total Protein 7.2 (6.3-8.2) g/dL Albumin 4.4 (3.5-5.0) g/dL Globulin 2.8 (1.7-4.1) g/dL Albumin/Globulin Ratio 1.6 (1.0-2.8) Lipase 144 (23-300) U/L ECG Data Attestation: I personally reviewed and interpreted this ECG as follows: Interpretation: Sinus rhythm Ventricular rate 98 Normal axis Normal QRS Normal QTC Nonspecific ST T wave changes MDM Narrative Medical decision making narrative: Patient has a relatively unremarkable exam here in the emergency department. His EKG is unremarkable. Labs unremarkable. I suspect that his symptoms are related to him becoming hypotensive. He states he takes his blood pressure medication in the morning and it is in the afternoon evening when he gets most of the symptoms. This would be 1 I would expect his blood pressure medication to be at its most effective. He has taken his blood pressure before during these times and it is fact low. I do feel this is a blood sugar issue. Do not feel this is a dehydration issue although that may have added to his problems from today. The plan will be is to take him off his blood pressure medicine. I feel that it is better for him to run somewhat high on his blood pressure over the next couple days rather than drop low. I did discuss this with him and he will continue to take his blood pressures at home like we discussed. He has a follow-up with his primary doctor any schedule next week and I recommended that he keep this appointment. Was given return precautions and follow-up instructions. He expressed understanding and agreement. Discharge Plan Departure Patient Disposition: Home Clinical Impression: Hypotension Instructions: Blood Pressure Testing and Measurement Activity Restrictions/Additional Instructions: Based on our discussion today current recommendation is that you stop taking your losartan. For the time being it is better for you to have a slightly higher blood pressure rather than blood pressures after dropping which I suspect is what is causing your presenting symptoms. Keep all of your scheduled medical appointments. Continue the rest of your medications as directed. Contact your primary provider for follow-up. Return to the emergency department for any new or worsening symptoms Prescriptions: No Action amlodipine 10 mg tablet 10 mg PO DAILY Qty: 90 RF: 3 Hold Instructions: transition to Pregabalin levothyroxine [Levoxyl] 125 mcg tablet 125 mcg PO DAILY Qty: 90 RF: 3 cyclobenzaprine 10 mg tablet 10 mg PO BEDTIME PRN (Reason: muscle spasm) Qty: 20 RF: 2 losartan 100 mg tablet 100 mg PO DAILY Qty: 90 RF: 3 celecoxib 100 mg capsule 100 mg PO BID Qty: 180 RF: 3 dicyclomine 20 mg tablet 20 mg PO TID PRN (Reason: abd pain) Qty: 30 RF: 2 betamethasone valerate 0.1 % cream 1 applic TOP BID Qty: 15 RF: 1 allopurinol 100 mg tablet 200 mg PO DAILY Qty: 180 RF: 3 venlafaxine 37.5 mg capsule,extended release 24hr 75 mg PO QPM Qty: 180 RF: 3 Referrals: Odalys Prado ARNP [Primary Care Provider] -
[2020-10-19 23:30] VITALS: PULSE 97; RESP 27; O2SAT 95
== END 2020-10-19 23:57 | disposition home or self-care (01) ==
PROVIDERS: Emergency Provider Emergency Medicine; PCP Nurse Practitioner
DX: I95.9 Hypotension, unspecified (principal); R07.9 Chest pain, unspecified
CPT/HCPCS: 36415; 80053; 82550; 82553; 83690; 84484; 85025; 93005; 96360; 99284

== ENCOUNTER → 2021-03-03 14:10 | Outpatient (CLI) | payer MEDICARE, SELFPAY ==
[2021-03-03 15:32] LABS: Alanine Aminotransferase 41 IU/L (<50); Albumin 4.5 g/dL (3.5-5.0); Albumin Globulin Ratio 1.7 (1.0-2.8); Alkaline Phosphatase 60 U/L (38-126); Aspartate Aminotransferase 41 IU/L (17-59); BUN Creatinine Ratio 19.4 (6-22); Bilirubin Total 0.7 mg/dL (0.2-1.3); Blood Urea Nitrogen 20 mg/dL (9-20); Calcium 9.9 mg/dL (8.4-10.2); Carbon Dioxide 25 mmol/L (22-32); Chloride 104 mmol/L (98-107); Cholesterol 215 mg/dL (140-199); Estimated Glomerular Filt Rate > 60.0 mL/min (>60); Globulin 2.6 g/dL (1.7-4.1); Glucose 96 mg/dL (80-110); HDL Cholesterol 52 mg/dL (40-60); HEMOLYSIS < 15 (0-50); LDL Cholesterol Calculated 102 mg/dL (<100); Potassium 4.3 mmol/L (3.4-5.1); Sodium 140 mmol/L (137-145); Total Protein 7.1 g/dL (6.3-8.2); Triglycerides 307 mg/dL (35-150)
[2021-03-03 15:43] LABS: Hematocrit 44.2 % (41-53); Mean Corpuscular HGB Conc 33.9 % (30-36); Mean Corpuscular Hemoglobin 31.5 PG (26-34); Platelet Count 247 X10^3/uL (150-400); Red Blood Cell Count 4.75 X10^6/uL (4.5-5.9); Red Cell Distribution Width 13.3 % (11.6-14.8); White Blood Cell Count 7.1 X10^3/uL (4.5-11.0)
[2021-03-03 15:56] LABS: Creatinine Urine Random 44.2 mg/dL
[2021-03-03 16:00] LABS: Microalbumi Creatinin Ratio Ur 13.5 ug/mg CR (<30); Microalbumin Urine Random 0.6 mg/dL (0-1.6)
[2021-03-03 16:03] LABS: Thyroid Stimulating Hormone 0.374 uIU/mL (0.47-4.68)
== END ==
PROVIDERS: PCP Nurse Practitioner; Referring Provider Nurse Practitioner; Visit Provider Nurse Practitioner
DX: E03.9 Hypothyroidism, unspecified (principal); E78.2 Mixed hyperlipidemia; F33.9 Major depressive disorder, recurrent, unspecified; N18.2 Chronic kidney disease, stage 2 (mild); Z79.899 Other long term (current) drug therapy; D72.829 Elevated white blood cell count, unspecified; I10 Essential (primary) hypertension
CPT/HCPCS: 36415; 80053; 80061; 82043; 82570; 84443; 85027

== ENCOUNTER → 2021-05-29 08:28 | Outpatient (CLI) | payer MEDICARE, SELFPAY ==
[2021-05-29 10:36] LABS: High Sensitivity CRP - Cardiac 2.1 mg/L (1.0-3.0)
[2021-05-29 10:44] LABS: Free T3, Triiodothyronine Free 3.03 pg/mL (2.77-5.27); Free T4, Direct Thyroxine 1.43 ng/dL (0.78-2.19)
[2021-05-30 10:21] LABS: Homocysteine 9.6 umol/L (0.0-17.2)
== END ==
PROVIDERS: PCP Nurse Practitioner; Referring Provider Nurse Practitioner; Visit Provider Nurse Practitioner
DX: E78.2 Mixed hyperlipidemia (principal); I10 Essential (primary) hypertension; N18.2 Chronic kidney disease, stage 2 (mild); E03.9 Hypothyroidism, unspecified; Z79.899 Other long term (current) drug therapy
CPT/HCPCS: 36415; 83090; 84439; 84443; 84481; 86140

== ENCOUNTER → 2021-09-25 15:25 | Outpatient (CLI) | payer MEDICARE, OTHER, SELFPAY ==
[2021-09-25 17:18] LABS: Free T3, Triiodothyronine Free 2.98 pg/mL (2.77-5.27); Free T4, Direct Thyroxine 1.03 ng/dL (0.78-2.19)
[2021-09-25 17:32] LABS: Thyroid Stimulating Hormone 0.928 uIU/mL (0.47-4.68)
== END ==
PROVIDERS: PCP Nurse Practitioner; Referring Provider Nurse Practitioner; Visit Provider Nurse Practitioner
DX: E03.9 Hypothyroidism, unspecified (principal)
CPT/HCPCS: 36415; 84439; 84443; 84481

== ENCOUNTER 2021-10-07 10:30 | Outpatient (RCR) | payer MEDICARE, OTHER, SELFPAY ==
--- NOTE | 2021-09-19 18:56 | PT.OIE ---
Current Diagnoses Stiffness of unspecified hip, not elsewhere classified (09/19/21) Low back pain, unspecified (09/19/21) Muscle weakness (generalized) (09/19/21) Other symptoms and signs involving the musculoskeletal system (09/19/21) Past Medical History (Last Updated 09/09/21 @ 13:55 by PB Nicholas) Arthralgia Chronic back pain Chronic kidney disease Chronic sinusitis (2015) Colon polyps (2006) Dental abscess Discoloration of skin of face Gout (2009) Gout Hyperlipidemia Hypertension Hypothyroidism (2012) Lower urinary tract symptoms (LUTS) Lumbar back pain Osteoarthritis Osteoarthritis Peripheral neuropathy Peripheral neuropathy, idiopathic Polyp of colon (01/01/14) 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) Pulmonary nodule Sinusitis Sleep apnea White coat syndrome with diagnosis of hypertension Past Surgical History (Last Reviewed 06/04/21 @ 08:13 by PB Nicholas) History of arthroscopy of left knee History of bilateral carpal tunnel release History of lumbar surgery History of surgery Visit Care Team Role Provider Type PB Nicholas Attending Provider Advanced Medical Recruiter Primary Care Provider Referring Provider Specialty: [facility] Address: [address] [place] [address] Email: [email or web address] Physical Therapy Initial Evaluation PT-OP-A Visit Information Start: 09/15/21 17:04 Freq: Status: Active Protocol: Document 09/19/21 13:54 LRN (Rec: 09/19/21 14:44 JENN [id number]) Out-Patient Physical Therapy Visit Information Visit Information Visit Type Initial Evaluation Visit Start Time 13:55 Visit Stop Time 14:43 Total Visit Minutes 48 Visit Number 1 Evaluation Information Evaluation Date 09/19/21 Precautions Precautions Controlled High Blood pressure with medication, bilateral foot neuropathy for past couple years, thyroid disorder . PT-OP-B Current Condition Start: 09/15/21 17:04 Freq: Status: Active Protocol: Document 09/19/21 13:54 LRN (Rec: 09/19/21 14:44 LRN [id number]) Current Condition History of Current Condition Onset Date 2 yrs ago, but recent increase 1 yr ago. Current Complaints Bridget Back pain radiating to outer and posterior hips. History of Current Condition Started as L hip pain and now the R hip is hurting also. Hip/Back pain that increases to severe after walking 20 yards to get the mail and sometime able to go up/back to mailbox. Prior Treatments and Tests Lumbar X-rays of 08/03/20: Mild retrolisthesis of L2 on L3, L4 on L5 & L5 on S1, Multilevel DDD at T12-S1; multilevel foraminal stenosis, worst at L3-L4 with associated intraforaminal nerve root compression. Developmental History Developmental History 1989 was hurt on fishing boat and had surgery on L4-L5. 1 yr later the L leg quit working and he fell to the floor. Had same surgery in the same area in ~1991 with pretty good recovery. 2 yrs later had pain and found a lot of scar tissue and walking helped make the back feel better. He walked daily but now his back/hip pain prevents him from walking. Treatment Goals Patient/Caregiver Goals Pt goal is to be able to walk 1/2 mile at 3 mph (or 1/2 hour ). Personal Factors Other Personal Factors That May Effect Bilateral neuropathy of the Therapy/Recovery feet, history of multiple surgeries to the back. PT-OP-C Subjective Start: 09/15/21 17:04 Freq: Status: Active Protocol: Document 09/19/21 13:54 LRN (Rec: 09/19/21 14:44 LRN [id number]) Patient Questionnaires Oswestry Low Back Index Oswestry Score 30 Oswestry Impairment 20 to 39% Impaired (Score 20- 39) OP-PT Pain Assessment Pain Assessment Grid Paper Pain Assessment Grid Completed Yes Location Low back Pain Location Details Across the Low back and bridget hips Intensity 6 Scale Used Numeric (0 - 10) PT-OP-J Posture/Palpation/Skin Start: 09/15/21 17:04 Freq: Status: Active Protocol: Document 09/19/21 13:54 LRN (Rec: 09/19/21 14:44 LRN [id number]) Posture Evaluation Position Standing Head/C-Spine Posture Forward Head T-Spine Posture Flattened,Rotation Left L-Spine Posture Decreased Lordosis Hip Posture (L) Flexed,(R) Flexed,(L) Externally Rotated,(R) Externally Rotated Comments Posture Comments 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 Palpation Assessment Location Sacrum Palpation Location Sacral border Palpation Findings Tenderness Palpation Details L rotated Sacral border pain > distally. SIJ's Palpation Location Pain across the LB at level of SIJ's. Palpation Findings Tenderness PT-OP-K Range of Motion Start: 09/15/21 17:04 Freq: Status: Active Protocol: Document 09/19/21 13:54 LRN (Rec: 09/19/21 14:44 LRN [id number]) Lumbar Spine Range of Motion Lumbar Spine Active Degrees Testing Position Standing Flexion 37 Lateral Flexion Left 10 Lateral Flexion Right 10 ROM Limitations Soft Tissue Tightness Hip Goniometric Range of Motion Hip Right Passive Hip ROM WFL No Testing Position Supine Straight Leg Raise 55 Abduction 35 Internal Rotation 20 External Rotation 40 Left Passive Hip ROM WFL No Testing Position Sitting Straight Leg Raise 45 Abduction 28 Internal Rotation 20 External Rotation 30 PT-OP-L Special Tests Start: 09/15/21 17:04 Freq: Status: Active Protocol: Document 09/19/21 13:54 LRN (Rec: 09/19/21 14:44 LRN [id number]) Special Tests Lumbar Spine Special Tests Manual Traction Test Results Mild decreased in LBP with traction Straight Leg Raise Test Results + 45 L, - 55 R Comments Tight in Hamstrings Vertical Spine Loading Test Results negative PT-OP-M Strength Start: 09/15/21 17:04 Freq: Status: Active Protocol: Document 09/19/21 13:54 LRN (Rec: 09/19/21 14:44 LRN [id number]) Trunk Strength Trunk Manual Muscle Testing Core Stabilization Fair core stabilization with MMT of LE's. Hip Strength Hip Manual Muscle Testing Right Flexion (L2) 5 Normal Extension (S1) 4+ Good+ Adduction 3 Fair External Rotation 4+ Good+ Internal Rotation 4+ Good+ Left Flexion (L2) 5 Normal Extension (S1) 5 Normal Abduction 5 Normal Adduction 5 Normal External Rotation 3+ Fair+ Internal Rotation 4+ Good+ Comments Noted: L calf and thigh atrophy of ms. PT-OP-Q Treatments Start: 09/15/21 17:04 Freq: Status: Active Protocol: Document 09/19/21 13:54 LRN (Rec: 09/19/21 14:44 LRN [id number]) Self-Care/Home Management Treatment Education Other Education Discussed results of evaluation, goals, and plan of care (POC). Pt agreeable to goals and POC. Activities Self-Care/Home Management Activities I/S HEP: SKTC stretch PT-OP-T Assessment and Plan Start: 09/15/21 17:04 Freq: Status: Active Protocol: Document 09/19/21 13:54 LRN (Rec: 09/19/21 14:44 LRN [id number]) Physical Therapy Assessment Rehab Potential Rehabilitation Potential Good Evaluation Complexity Number of Personal Factors/Comorbidities 1-2 Number of Body Systems Impaired 4 or More Clinical Presentation at Evaluation Evolving Impairments Impairments Activity Tolerance,Pain, Posture,ROM,Strength Goals Three Impairment Decreased functional gait ability Impairment Pt was able to walk 1/2 mile for management of his LBP Wire Coiler Machine Operator Goal (LTG) Pt will be able to walk 1/2 mile at prior level of function to manage his back pain (10 minutes ~ 12 mile when walking 3 mph). 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 LTG Duration 12/18/21 One Impairment Lacks appropriate self care HEP> Short Term Goal (STG) Pt will be educated in proper auto body painter for daily activities. STG Duration 09/26/21 Wire Coiler Machine Operator Goal (LTG) Pt will be independent in a self care HEP of LB ex's to help manage his pain. 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 The pt is extremely limited in LE mobility, creating stress on the low back and SIJ's. The pt has + PSLR on the L side but also has quite restricted hamstring mobility on the R side. He demonstrates abdominal core weakness with no notable bracing when moving his LE's. The pt will benefit from skilled physical therapy to promote improved low back and hip mobility, core strength and stability, postural awareness & body mechanics edication & training , manual and STM, modalities for pain management, and placement on a self care HEP. Physical Therapy Plan Frequency and Duration Frequency of Treatment 2x/Week Plan of Care Start Date 09/19/21 Plan of Care End Date 12/18/21 Therapeutic Interventions Therapeutic Interventions Aquatic Therapy,Gait Training, Home Exercise Program,Manual Therapy,Neuromuscular Re- education,Patient/Caregiver Education,Self-Care/Home Management,Soft Tissue Mobilization,Taping, Therapeutic Activities, Therapeutic Exercises Modalities Cold Pack/Ice Massage,Electric Stimulation,Hot Packs Next Visit Focus/Plan Next Note Type Treatment Note Next Visit Plan HEP: LB & Hip mobility program HEP: Core stabilization. Postural awareness & body mechanics education & training . Modalities for pain management (MH/Ice/EStim)] Manual: Lumbar traction & MFR> LB. Exer: LB/Hip stretches, LB stab.
--- NOTE | 2021-09-19 18:56 | PT.OPPOC ---
Physical, Occupational & Speech Therapy At [facility] Current Diagnoses Stiffness of unspecified hip, not elsewhere classified (09/19/21) Low back pain, unspecified (09/19/21) Muscle weakness (generalized) (09/19/21) Other symptoms and signs involving the musculoskeletal system (09/19/21) Visit Care Team Role Provider Type PB Nicholas Attending Provider Advanced Watershed Coordinator Primary Care Provider Referring Provider Specialty: [facility] Practice Address: [address] [place] [address], [facility] Email: [email or web address] Plan Of Care PT-OP-T Assessment and Plan Start: 09/15/21 17:04 Freq: Status: Active Protocol: Document 09/19/21 13:54 LRN (Rec: 09/19/21 14:44 LRN [id number]) Physical Therapy Assessment Rehab Potential Rehabilitation Potential Good Evaluation Complexity Number of Personal Factors/Comorbidities 1-2 Number of Body Systems Impaired 4 or More Clinical Presentation at Evaluation Evolving Impairments Impairments Activity Tolerance,Pain, Posture,ROM,Strength Goals Three Impairment Decreased functional gait ability Impairment Pt was able to walk 1/2 mile for management of his LBP Hostage Negotiator Goal (LTG) Pt will be able to walk 1/2 mile at prior level of function to manage his back pain (10 minutes ~ 12 mile when walking 3 mph). 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 LTG Duration 12/18/21 One Impairment Lacks appropriate self care HEP> Short Term Goal (STG) Pt will be educated in proper assembler body for daily activities. STG Duration 09/26/21 Hostage Negotiator Goal (LTG) Pt will be independent in a self care HEP of LB ex's to help manage his pain. 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 The pt is extremely limited in LE mobility, creating stress on the low back and SIJ's. The pt has + PSLR on the L side but also has quite restricted hamstring mobility on the R side. He demonstrates abdominal core weakness with no notable bracing when moving his LE's. The pt will benefit from skilled physical therapy to promote improved low back and hip mobility, core strength and stability, postural awareness & body mechanics edication & training , manual and STM, modalities for pain management, and placement on a self care HEP. Physical Therapy Plan Frequency and Duration Frequency of Treatment 2x/Week Plan of Care Start Date 09/19/21 Plan of Care End Date 12/18/21 Therapeutic Interventions Therapeutic Interventions Aquatic Therapy,Gait Training, Home Exercise Program,Manual Therapy,Neuromuscular Re- education,Patient/Caregiver Education,Self-Care/Home Management,Soft Tissue Mobilization,Taping, Therapeutic Activities, Therapeutic Exercises Modalities Cold Pack/Ice Massage,Electric Stimulation,Hot Packs Next Visit Focus/Plan Next Note Type Treatment Note Next Visit Plan HEP: LB & Hip mobility program HEP: Core stabilization. Postural awareness & body mechanics education & training . Modalities for pain management (MH/Ice/EStim)] Manual: Lumbar traction & MFR> LB. Exer: LB/Hip stretches, LB stab. Plan of Care Dates Plan of Care Start Date 09/19/21 Plan of Care End Date 12/18/21 Electronically Signed by: Rowan Singh, PT 09/19/21 0009 If you are in agreement with this Plan of Care, please return a signed and dated copy. I have reviewed this Plan of Care and certify that the skilled therapy services above are required to meet the patient?s needs. Physician Signature Date Printed Name and Credentials Clinical Instructor Signature Printed Name and Credentials
--- NOTE | 2021-09-22 16:44 | PT.OTN ---
Current Diagnoses Stiffness of unspecified hip, not elsewhere classified (09/22/21) Low back pain, unspecified (09/22/21) Muscle weakness (generalized) (09/22/21) Other symptoms and signs involving the musculoskeletal system (09/22/21) Physical Therapy Treatment Note PT-OP-A Visit Information Start: 09/15/21 17:04 Freq: Status: Active Protocol: Document 09/22/21 15:24 LRN (Rec: 09/22/21 16:36 LRN [id number]) Out-Patient Physical Therapy Visit Information Visit Information Visit Type Treatment Note Visit Start Time 15:24 Visit Stop Time 16:09 Total Visit Minutes 45 Visit Number 2 Evaluation Information Evaluation Date 09/19/21 Precautions Precautions Controlled High Blood pressure with medication, bilateral foot neuropathy for past couple years, thyroid disorder . PT-OP-B Current Condition Start: 09/15/21 17:04 Freq: Status: Active Protocol: Document 09/19/21 13:54 LRN (Rec: 09/19/21 14:44 LRN [id number]) Current Condition History of Current Condition Onset Date 2 yrs ago, but recent increase 1 yr ago. Current Complaints Emmanuel Back pain radiating to outer and posterior hips. History of Current Condition Started as L hip pain and now the R hip is hurting also. Hip/Back pain that increases to severe after walking 20 yards to get the mail and sometime able to go up/back to mailbox. Prior Treatments and Tests Lumbar X-rays of 08/03/20: Mild retrolisthesis of L2 on L3, L4 on L5 & L5 on S1, Multilevel DDD at T12-S1; multilevel foraminal stenosis, worst at L3-L4 with associated intraforaminal nerve root compression. Developmental History Developmental History 1989 was hurt on fishing boat and had surgery on L4-L5. 1 yr later the L leg quit working and he fell to the floor. Had same surgery in the same area in ~1991 with pretty good recovery. 2 yrs later had pain and found a lot of scar tissue and walking helped make the back feel better. He walked daily but now his back/hip pain prevents him from walking. Treatment Goals Patient/Caregiver Goals Pt goal is to be able to walk 1/2 mile at 3 mph (or 1/2 hour ). Personal Factors Other Personal Factors That May Effect Bilateral neuropathy of the Therapy/Recovery feet, history of multiple surgeries to the back. PT-OP-C Subjective Start: 09/15/21 17:04 Freq: Status: Active Protocol: Document 09/22/21 15:24 LRN (Rec: 09/22/21 16:36 LRN [id number]) OP-PT Subjective Patient Comments Patient Comments No change. PT-OP-H Neuro Start: 09/15/21 17:04 Freq: Status: Active Protocol: Document 09/22/21 15:24 LRN (Rec: 09/22/21 16:36 LRN [id number]) Deep Tendon Reflex & Clonus Assessment Deep Tendon Reflex Right Achilles Deep Tendon Reflex 0 Absent Left Achilles Deep Tendon Reflex 0 Absent Right Patellar Deep Tendon Reflex 0 Absent Left Patellar Deep Tendon Reflex 0 Absent PT-OP-J Posture/Palpation/Skin Start: 09/15/21 17:04 Freq: Status: Active Protocol: Document 09/19/21 13:54 LRN (Rec: 09/19/21 14:44 LRN [id number]) Posture Evaluation Position Standing Head/C-Spine Posture Forward Head T-Spine Posture Flattened,Rotation Left L-Spine Posture Decreased Lordosis Hip Posture (L) Flexed,(R) Flexed,(L) Externally Rotated,(R) Externally Rotated Comments Posture Comments 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 Palpation Assessment Location Sacrum Palpation Location Sacral border Palpation Findings Tenderness Palpation Details L rotated Sacral border pain > distally. SIJ's Palpation Location Pain across the LB at level of SIJ's. Palpation Findings Tenderness PT-OP-K Range of Motion Start: 09/15/21 17:04 Freq: Status: Active Protocol: Document 09/19/21 13:54 LRN (Rec: 09/19/21 14:44 LRN [id number]) Lumbar Spine Range of Motion Lumbar Spine Active Degrees Testing Position Standing Flexion 37 Lateral Flexion Left 10 Lateral Flexion Right 10 ROM Limitations Soft Tissue Tightness Hip Goniometric Range of Motion Hip Right Passive Hip ROM WFL No Testing Position Supine Straight Leg Raise 55 Abduction 35 Internal Rotation 20 External Rotation 40 Left Passive Hip ROM WFL No Testing Position Sitting Straight Leg Raise 45 Abduction 28 Internal Rotation 20 External Rotation 30 PT-OP-L Special Tests Start: 09/15/21 17:04 Freq: Status: Active Protocol: Document 09/19/21 13:54 LRN (Rec: 09/19/21 14:44 LRN [id number]) Special Tests Lumbar Spine Special Tests Manual Traction Test Results Mild decreased in LBP with traction Straight Leg Raise Test Results + 45 L, - 55 R Comments Tight in Hamstrings Vertical Spine Loading Test Results negative PT-OP-M Strength Start: 09/15/21 17:04 Freq: Status: Active Protocol: Document 09/19/21 13:54 LRN (Rec: 09/19/21 14:44 LRN [id number]) Trunk Strength Trunk Manual Muscle Testing Core Stabilization Fair core stabilization with MMT of LE's. Hip Strength Hip Manual Muscle Testing Right Flexion (L2) 5 Normal Extension (S1) 4+ Good+ Adduction 3 Fair External Rotation 4+ Good+ Internal Rotation 4+ Good+ Left Flexion (L2) 5 Normal Extension (S1) 5 Normal Abduction 5 Normal Adduction 5 Normal External Rotation 3+ Fair+ Internal Rotation 4+ Good+ Comments Noted: L calf and thigh atrophy of ms. PT-OP-Q Treatments Start: 09/15/21 17:04 Freq: Status: Active Protocol: Document 09/22/21 15:24 LRN (Rec: 09/22/21 16:36 LRN [id number]) Therapeutic Exercises Supine Exercises Piriformis stretch Supine Exercise Name Piriformis stretch: Knee to opposite shoulder Side bilateral Reps/Minutes 8' Lateral Hip stretch Supine Exercise Name Lateral Hip stretch Side bilateral Reps/Minutes 6' Comments Extra time to determine max tolerated stretch Fig 4 stretch Supine Exercise Name Fig 4 stretch Side bilateral Reps/Minutes 8' Comments Extra time to determine max tolerated stretch SKTC stretch Supine Exercise Name SKTC stretch Side bilateral Reps/Minutes 8' Comments Extra time to determine max tolerated stretch & pull position Sitting Exercises Piriformis stretch Sitting Exercise Name Piriformis stretch Side bilateral Reps/Minutes 4' Comments Extra time to determine max tolerated stretch & pull position Fig 4 stretch Sitting Exercise Name Fig 4 stretch Side bilateral Reps/Minutes 4' Self-Care/Home Management Treatment Education Patient Education Home Exercise Program Other Education Educated pt in proper posturing for daily activities and proper mechanics for sweeping, working at table, putting socks/shoes on, dishes , picking up objects from ground. Handout issued showing do's and dont's of daily activities. Activities Self-Care/Home Management Activities Issued & reviewed HEP: Hip stretches: Fig 4, Lateral Hip , Piriformis, Iliopsoas stretch, LE neural stretch. PT-OP-T Assessment and Plan Start: 09/15/21 17:04 Freq: Status: Active Protocol: Document 09/22/21 15:24 LRN (Rec: 09/22/21 16:36 LRN [id number]) Physical Therapy Assessment Goals Three Impairment Decreased functional gait ability Impairment Pt was able to walk 1/2 mile for management of his LBP Plant Sprayer Goal (LTG) Pt will be able to walk 1/2 mile at prior level of function to manage his back pain (10 minutes ~ 12 mile when walking 3 mph). 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 Short Term Goal (STG) Pt will be able to bend over and pick things up with mild pain in the billing spec or moderate pain by the end of the day. 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 (09/22/21: Issued & reviewed Proper body mechanics for daily activities). STG Duration 09/26/21 (09/22/21: MET GOAL) Plant Sprayer Goal (LTG) Pt will be independent in a self care HEP of LB ex's to help manage his pain. (09/22/21: HEP: fig 4, Piriformis, lateral hip, HS/ neural stretch) LTG Duration 12/18/21 (09/22/21: Progressed) Assessment Summary Assessment Pt very limited in hip mobility; therefore LBP and sacral/emmanuel SIJ pain. L hip mobility appears more restricted than R hip with stretches. Pt appears to have a good understanding of proper posturing/body mechanics with daily activities. Neurologically he has decreased sensation in lower legs and increased sensativity of feet, as well as no notable DTR's in LE's bilaterally Physical Therapy Plan Frequency and Duration Frequency of Treatment 2x/Week Plan of Care Start Date 09/19/21 Plan of Care End Date 12/18/21 Next Visit Focus/Plan Next Note Type Treatment Note Next Visit Plan HEP & Exer: Add trunk rot stretch & Core stabilization ex's. Postural awareness education & training. Modalities for pain management (MH/Ice/EStim), Manual: Lumbar traction & MFR> LB, MFR to improve hip mobility.
--- NOTE | 2021-09-25 16:30 | PT.OTN ---
Current Diagnoses Stiffness of unspecified hip, not elsewhere classified (09/25/21) Low back pain, unspecified (09/25/21) Muscle weakness (generalized) (09/25/21) Other symptoms and signs involving the musculoskeletal system (09/25/21) Physical Therapy Treatment Note PT-OP-A Visit Information Start: 09/15/21 17:04 Freq: Status: Active Protocol: Document 09/25/21 14:32 LRN (Rec: 09/25/21 15:26 LRN [id number]) Out-Patient Physical Therapy Visit Information Visit Information Visit Type Treatment Note Visit Start Time 14:32 Visit Stop Time 15:18 Total Visit Minutes 46 Visit Number 3 Evaluation Information Evaluation Date 09/19/21 Precautions Precautions Controlled High Blood pressure with medication, bilateral foot neuropathy for past couple years, thyroid disorder . PT-OP-B Current Condition Start: 09/15/21 17:04 Freq: Status: Active Protocol: Document 09/19/21 13:54 LRN (Rec: 09/19/21 14:44 LRN [id number]) Current Condition History of Current Condition Onset Date 2 yrs ago, but recent increase 1 yr ago. Current Complaints Emmanuel Back pain radiating to outer and posterior hips. History of Current Condition Started as L hip pain and now the R hip is hurting also. Hip/Back pain that increases to severe after walking 20 yards to get the mail and sometime able to go up/back to mailbox. Prior Treatments and Tests Lumbar X-rays of 08/03/20: Mild retrolisthesis of L2 on L3, L4 on L5 & L5 on S1, Multilevel DDD at T12-S1; multilevel foraminal stenosis, worst at L3-L4 with associated intraforaminal nerve root compression. Developmental History Developmental History 1989 was hurt on fishing boat and had surgery on L4-L5. 1 yr later the L leg quit working and he fell to the floor. Had same surgery in the same area in ~1991 with pretty good recovery. 2 yrs later had pain and found a lot of scar tissue and walking helped make the back feel better. He walked daily but now his back/hip pain prevents him from walking. Treatment Goals Patient/Caregiver Goals Pt goal is to be able to walk 1/2 mile at 3 mph (or 1/2 hour ). Personal Factors Other Personal Factors That May Effect Bilateral neuropathy of the Therapy/Recovery feet, history of multiple surgeries to the back. 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 Not having pain in back currently. Thinks his KTC mobility is better. PT-OP-H Neuro Start: 09/15/21 17:04 Freq: Status: Active Protocol: Document 09/22/21 15:24 LRN (Rec: 09/22/21 16:36 LRN [id number]) Deep Tendon Reflex & Clonus Assessment Deep Tendon Reflex Right Achilles Deep Tendon Reflex 0 Absent Left Achilles Deep Tendon Reflex 0 Absent Right Patellar Deep Tendon Reflex 0 Absent Left Patellar Deep Tendon Reflex 0 Absent PT-OP-J Posture/Palpation/Skin Start: 09/15/21 17:04 Freq: Status: Active Protocol: Document 09/19/21 13:54 LRN (Rec: 09/19/21 14:44 LRN [id number]) Posture Evaluation Position Standing Head/C-Spine Posture Forward Head T-Spine Posture Flattened,Rotation Left L-Spine Posture Decreased Lordosis Hip Posture (L) Flexed,(R) Flexed,(L) Externally Rotated,(R) Externally Rotated Comments Posture Comments 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 Palpation Assessment Location Sacrum Palpation Location Sacral border Palpation Findings Tenderness Palpation Details L rotated Sacral border pain > distally. SIJ's Palpation Location Pain across the LB at level of SIJ's. Palpation Findings Tenderness PT-OP-K Range of Motion Start: 09/15/21 17:04 Freq: Status: Active Protocol: Document 09/25/21 14:32 LRN (Rec: 09/25/21 15:26 LRN [id number]) Hip Goniometric Range of Motion Hip Right Passive Hip ROM WFL No Testing Position Supine Flexion w/Knee Flexed 105 Straight Leg Raise 55 Abduction 35 Internal Rotation 20 External Rotation 40 Left Passive Hip ROM WFL No Testing Position Sitting Flexion w/Knee Flexed 116 Straight Leg Raise 45 Abduction 28 Internal Rotation 20 External Rotation 30 PT-OP-L Special Tests Start: 09/15/21 17:04 Freq: Status: Active Protocol: Document 09/19/21 13:54 LRN (Rec: 09/19/21 14:44 LRN [id number]) Special Tests Lumbar Spine Special Tests Manual Traction Test Results Mild decreased in LBP with traction Straight Leg Raise Test Results + 45 L, - 55 R Comments Tight in Hamstrings Vertical Spine Loading Test Results negative PT-OP-M Strength Start: 09/15/21 17:04 Freq: Status: Active Protocol: Document 09/19/21 13:54 LRN (Rec: 09/19/21 14:44 LRN [id number]) Trunk Strength Trunk Manual Muscle Testing Core Stabilization Fair core stabilization with MMT of LE's. Hip Strength Hip Manual Muscle Testing Right Flexion (L2) 5 Normal Extension (S1) 4+ Good+ Adduction 3 Fair External Rotation 4+ Good+ Internal Rotation 4+ Good+ Left Flexion (L2) 5 Normal Extension (S1) 5 Normal Abduction 5 Normal Adduction 5 Normal External Rotation 3+ Fair+ Internal Rotation 4+ Good+ Comments Noted: L calf and thigh atrophy of ms. PT-OP-Q Treatments Start: 09/15/21 17:04 Freq: Status: Active Protocol: Document 09/25/21 14:32 LRN (Rec: 09/25/21 15:26 LRN [id number]) Therapeutic Exercises Supine Exercises Hamstring/LE neural stretch Supine Exercise Name Hamstring/LE neural stretch Side bilateral Reps/Minutes 6' Comments Extra time taken for training of ex & find max deneen stretch position. LTR trunk rot stretch Supine Exercise Name Trunk rot stretch, alternating LTR. Reps/Minutes 10 SH x 6 Comments Extra time taken for training of ex & find max deneen stretch position. Piriformis stretch Supine Exercise Name Piriformis stretch: Knee to opposite shoulder Side bilateral Reps/Minutes 4' Comments Extra time taken for training of ex & find max deneen stretch position. Lateral Hip stretch Supine Exercise Name Lateral Hip stretch Side bilateral Reps/Minutes 5' Comments Pt needed cuing for proper positioning for ex Fig 4 stretch Supine Exercise Name Fig 4 stretch, f/b active stretch Side bilateral Equipment Used Pillow supporting hip in stretch Reps/Minutes 6' Comments Extra time to determine max tolerated stretch SKTC stretch Supine Exercise Name SKTC stretch Side bilateral Reps/Minutes 6' Comments ROM taken Sitting Exercises TA/Chest press Sitting Exercise Name TA/Chest press Side bilateral Resistance Lev 3, mod tension to start Reps/Minutes 15x Comments Extra time to find max tolerated resistance to get TA tight sensation Standing Exercises TA/Chest press Standing Exercise Name TA/Chest press Equipment Used Lev 2 & Lev 3 Reps/Minutes 5' Comments Not able to get pt feeling TA strengthening due to Self-Care/Home Management Treatment Education Patient Education Home Exercise Program Activities Self-Care/Home Management Activities Ixssued & reviewed HEP: SKTC & LTR stretch. PT-OP-T Assessment and Plan Start: 09/15/21 17:04 Freq: Status: Active Protocol: Document 09/25/21 14:32 LRN (Rec: 09/25/21 15:26 LRN [id number]) Physical Therapy Assessment Goals Three Impairment Decreased functional gait ability Impairment Pt was able to walk 1/2 mile for management of his LBP Clearance Coordinator Goal (LTG) Pt will be able to walk 1/2 mile at prior level of function to manage his back pain (10 minutes ~ 12 mile when walking 3 mph). 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 LTG Duration 12/18/21 One Impairment Lacks appropriate self care HEP> Short Term Goal (STG) Pt will be educated in proper body hanger for daily activities. (09/22/21: Issued & reviewed Proper body mechanics for daily activities). STG Duration 09/26/21 (09/22/21: MET GOAL) Clearance Coordinator Goal (LTG) Pt will be independent in a self care HEP of LB ex's to help manage his pain. (09/22/21: HEP: fig 4, Piriformis, lateral hip, HS/ neural stretch) LTG Duration 12/18/21 (09/22/21: Progressed) Assessment Summary Assessment Pt had difficulty getting TA tightening with chest press standing due to neuropathy of feet; therefore did in sitting . Pt needed much tension to start to feel TA tightening w/ chest press. Good understanding of HEP, requires handouts for pt recall. Pt feeling hips are becoming more mobile. Modalities not needed after therapy. Physical Therapy Plan Frequency and Duration Frequency of Treatment 2x/Week Plan of Care Start Date 09/19/21 Plan of Care End Date 12/18/21 Next Visit Focus/Plan Next Note Type Treatment Note Next Visit Plan HEP & Exer: Add trunk rot stretch & Core stabilization ex's. Postural awareness education & training. Modalities for pain management (MH/Ice/EStim), Manual: Lumbar traction & MFR> LB, MFR to improve hip mobility.
--- NOTE | 2021-10-07 17:06 | PT.OTN ---
Current Diagnoses Stiffness of unspecified hip, not elsewhere classified (10/07/21) Low back pain, unspecified (10/07/21) Muscle weakness (generalized) (10/07/21) Other symptoms and signs involving the musculoskeletal system (10/07/21) Physical Therapy Treatment Note PT-OP-A Visit Information Start: 09/15/21 17:04 Freq: Status: Active Protocol: Document 10/07/21 10:43 LRN (Rec: 10/07/21 12:44 LRN [id number]) Out-Patient Physical Therapy Visit Information Visit Information Visit Type Treatment Note Visit Start Time 10:43 Visit Stop Time 11:30 Total Visit Minutes 47 Visit Number 4 Evaluation Information Evaluation Date 09/19/21 Precautions Precautions Controlled High Blood pressure with medication, bilateral foot neuropathy for past couple years, thyroid disorder . PT-OP-B Current Condition Start: 09/15/21 17:04 Freq: Status: Active Protocol: Document 09/19/21 13:54 LRN (Rec: 09/19/21 14:44 LRN [id number]) Current Condition History of Current Condition Onset Date 2 yrs ago, but recent increase 1 yr ago. Current Complaints Emmanuel Back pain radiating to outer and posterior hips. History of Current Condition Started as L hip pain and now the R hip is hurting also. Hip/Back pain that increases to severe after walking 20 yards to get the mail and sometime able to go up/back to mailbox. Prior Treatments and Tests Lumbar X-rays of 08/03/20: Mild retrolisthesis of L2 on L3, L4 on L5 & L5 on S1, Multilevel DDD at T12-S1; multilevel foraminal stenosis, worst at L3-L4 with associated intraforaminal nerve root compression. Developmental History Developmental History 1989 was hurt on fishing boat and had surgery on L4-L5. 1 yr later the L leg quit working and he fell to the floor. Had same surgery in the same area in ~1991 with pretty good recovery. 2 yrs later had pain and found a lot of scar tissue and walking helped make the back feel better. He walked daily but now his back/hip pain prevents him from walking. Treatment Goals Patient/Caregiver Goals Pt goal is to be able to walk 1/2 mile at 3 mph (or 1/2 hour ). Personal Factors Other Personal Factors That May Effect Bilateral neuropathy of the Therapy/Recovery feet, history of multiple surgeries to the back. PT-OP-C Subjective Start: 09/15/21 17:04 Freq: Status: Active Protocol: Document 10/07/21 10:43 LRN (Rec: 10/07/21 12:44 LRN [id number]) OP-PT Subjective Patient Comments Patient Comments Feels legs are getting stronger, can bend knees to pick thing up now. Reported back felt better after MH/IFES . Pt noting brother has back pain also and was diagnosed with a circulatory problem. PT-OP-H Neuro Start: 09/15/21 17:04 Freq: Status: Active Protocol: Document 09/22/21 15:24 LRN (Rec: 09/22/21 16:36 LRN [id number]) Deep Tendon Reflex & Clonus Assessment Deep Tendon Reflex Right Achilles Deep Tendon Reflex 0 Absent Left Achilles Deep Tendon Reflex 0 Absent Right Patellar Deep Tendon Reflex 0 Absent Left Patellar Deep Tendon Reflex 0 Absent PT-OP-J Posture/Palpation/Skin Start: 09/15/21 17:04 Freq: Status: Active Protocol: Document 09/19/21 13:54 LRN (Rec: 09/19/21 14:44 LRN [id number]) Posture Evaluation Position Standing Head/C-Spine Posture Forward Head T-Spine Posture Flattened,Rotation Left L-Spine Posture Decreased Lordosis Hip Posture (L) Flexed,(R) Flexed,(L) Externally Rotated,(R) Externally Rotated Comments Posture Comments 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 Palpation Assessment Location Sacrum Palpation Location Sacral border Palpation Findings Tenderness Palpation Details L rotated Sacral border pain > distally. SIJ's Palpation Location Pain across the LB at level of SIJ's. Palpation Findings Tenderness PT-OP-K Range of Motion Start: 09/15/21 17:04 Freq: Status: Active Protocol: Document 09/25/21 14:32 LRN (Rec: 09/25/21 15:26 LRN [id number]) Hip Goniometric Range of Motion Hip Right Passive Hip ROM WFL No Testing Position Supine Flexion w/Knee Flexed 105 Straight Leg Raise 55 Abduction 35 Internal Rotation 20 External Rotation 40 Left Passive Hip ROM WFL No Testing Position Sitting Flexion w/Knee Flexed 116 Straight Leg Raise 45 Abduction 28 Internal Rotation 20 External Rotation 30 PT-OP-L Special Tests Start: 09/15/21 17:04 Freq: Status: Active Protocol: Document 09/19/21 13:54 LRN (Rec: 09/19/21 14:44 LRN [id number]) Special Tests Lumbar Spine Special Tests Manual Traction Test Results Mild decreased in LBP with traction Straight Leg Raise Test Results + 45 L, - 55 R Comments Tight in Hamstrings Vertical Spine Loading Test Results negative PT-OP-M Strength Start: 09/15/21 17:04 Freq: Status: Active Protocol: Document 09/19/21 13:54 LRN (Rec: 09/19/21 14:44 LRN [id number]) Trunk Strength Trunk Manual Muscle Testing Core Stabilization Fair core stabilization with MMT of LE's. Hip Strength Hip Manual Muscle Testing Right Flexion (L2) 5 Normal Extension (S1) 4+ Good+ Adduction 3 Fair External Rotation 4+ Good+ Internal Rotation 4+ Good+ Left Flexion (L2) 5 Normal Extension (S1) 5 Normal Abduction 5 Normal Adduction 5 Normal External Rotation 3+ Fair+ Internal Rotation 4+ Good+ Comments Noted: L calf and thigh atrophy of ms. PT-OP-Q Treatments Start: 09/15/21 17:04 Freq: Status: Active Protocol: Document 10/07/21 10:43 LRN (Rec: 10/07/21 12:44 LRN [id number]) Cardio Equipment Recumbent Bicycle Duration (Minutes) 6 Resistance 5 Seat Position 4 Bicycle (Upright) Duration (Minutes) 6 Gym Equipment Shuttle Recovery Unilateral Squats Details Neutral spine/Single squat, slow controlled-ECC Resistance 37# Shuttle Recovery Platform Stable Reps/Time 15x each Bilateral Squats Details Neutral spine/Squats slow to start for control-ECC Resistance 62# Shuttle Recovery Platform Stable Reps/Time 5' extra time to determine tolerated resistance Therapeutic Exercises Sitting Exercises Trunk rot Sitting Exercise Name Trunk rot stretclh w/ proper breathing Side bilateral Reps/Minutes 5 H Comments Extra time to coordinate breathing. Self-Care/Home Management Treatment Education Patient Education Home Exercise Program Other Education Quick review of proper Postural awareness. Activities Self-Care/Home Management Activities I/S pt in sitting trunk rot stretch, pt forgot to get HEP handout. PT-OP-R Modalities Start: 09/15/21 17:04 Freq: Status: Active Protocol: Document 10/07/21 10:43 LRN (Rec: 10/07/21 12:44 LRN [id number]) Electric Stimulation Electric Stimulation Interferential Current (IFC) Body Location LB Duration (Minutes) 10 Intensity 23 Target/Sweep Sweep Patient Position Hooklying Combined With Heat/Cold Hot Pack PT-OP-T Assessment and Plan Start: 09/15/21 17:04 Freq: Status: Active Protocol: Document 10/07/21 10:43 LRN (Rec: 10/07/21 12:44 LRN [id number]) Physical Therapy Assessment Goals Three Impairment Decreased functional gait ability Impairment Pt was able to walk 1/2 mile for management of his LBP Senior Care Goal (LTG) Pt will be able to walk 1/2 mile at prior level of function to manage his back pain (10 minutes ~ 12 mile when walking 3 mph). 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 (09/22/21: Issued & reviewed Proper body mechanics for daily activities). STG Duration 09/26/21 (09/22/21: MET GOAL) Cold Patcher Goal (LTG) Pt will be independent in a self care HEP of LB ex's to help manage his pain. (09/22/21: HEP: fig 4, Piriformis, lateral hip, HS/ neural stretch) LTG Duration 12/18/21 (09/22/21: Progressed) Assessment Summary Assessment Pt appears to have good understanding of proper posturing for minimizing back pain. MH/IFES helped decrease back pain after exercise, pt to find home TNS unit to use post exercise. 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 Physical Therapy Plan Frequency and Duration Frequency of Treatment 2x/Week Plan of Care Start Date 09/19/21 Plan of Care End Date 12/18/21 Next Visit Focus/Plan Next Note Type Treatment Note Next Visit Plan Review & issue HEP: trunk rot stretch. Manual: MFR>LB (lumbar paraspinals), MFR to improve hip mobility (ilipsoas). ? Lumbar traction. Exer: Walking trainingCore stabilization ex's. ?Modalities for pain management (MH/Ice/EStim), pt has TNS at home.
--- NOTE | 2021-10-20 16:41 | PT.OPDS ---
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 Current Complaints Emmanuel Back pain radiating to outer and posterior hips. History of Current Condition Started as L hip pain and now the R hip is hurting also. Hip/Back pain that increases to severe after walking 20 yards to get the mail and sometime able to go up/back to mailbox. Prior Treatments and Tests Lumbar X-rays of 08/03/20: Mild retrolisthesis of L2 on L3, L4 on L5 & L5 on S1, Multilevel DDD at T12-S1; multilevel foraminal stenosis, worst at L3-L4 with associated intraforaminal nerve root compression. Developmental History Developmental History 1989 was hurt on fishing boat and had surgery on L4-L5. 1 yr later the L leg quit working and he fell to the floor. Had same surgery in the same area in ~1991 with pretty good recovery. 2 yrs later had pain and found a lot of scar tissue and walking helped make the back feel better. He walked daily but now his back/hip pain prevents him from walking. Treatment Goals Patient/Caregiver Goals Pt goal is to be able to walk 1/2 mile at 3 mph (or 1/2 hour ). Personal Factors Other Personal Factors That May Effect Bilateral neuropathy of the Therapy/Recovery feet, history of multiple surgeries to the back. PT-OP-C Subjective Start: 09/15/21 17:04 Freq: Status: Active Protocol: Document 10/07/21 10:43 LRN (Rec: 10/07/21 12:44 LRN [id number]) OP-PT Subjective Patient Comments Patient Comments Feels legs are getting stronger, can bend knees to pick thing up now. Reported back felt better after MH/IFES . Pt noting brother has back pain also and was diagnosed with a circulatory problem. PT-OP-H Neuro Start: 09/15/21 17:04 Freq: Status: Active Protocol: Document 09/22/21 15:24 LRN (Rec: 09/22/21 16:36 LRN [id number]) Deep Tendon Reflex & Clonus Assessment Deep Tendon Reflex Right Achilles Deep Tendon Reflex 0 Absent Left Achilles Deep Tendon Reflex 0 Absent Right Patellar Deep Tendon Reflex 0 Absent Left Patellar Deep Tendon Reflex 0 Absent PT-OP-J Posture/Palpation/Skin Start: 09/15/21 17:04 Freq: Status: Active Protocol: Document 09/19/21 13:54 LRN (Rec: 09/19/21 14:44 LRN [id number]) Posture Evaluation Position Standing Head/C-Spine Posture Forward Head T-Spine Posture Flattened,Rotation Left L-Spine Posture Decreased Lordosis Hip Posture (L) Flexed,(R) Flexed,(L) Externally Rotated,(R) Externally Rotated Comments Posture Comments 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 Palpation Assessment Location Sacrum Palpation Location Sacral border Palpation Findings Tenderness Palpation Details L rotated Sacral border pain > distally. SIJ's Palpation Location Pain across the LB at level of SIJ's. Palpation Findings Tenderness PT-OP-K Range of Motion Start: 09/15/21 17:04 Freq: Status: Active Protocol: Document 09/25/21 14:32 LRN (Rec: 09/25/21 15:26 LRN [id number]) Hip Goniometric Range of Motion Hip Right Passive Hip ROM WFL No Testing Position Supine Flexion w/Knee Flexed 105 Straight Leg Raise 55 Abduction 35 Internal Rotation 20 External Rotation 40 Left Passive Hip ROM WFL No Testing Position Sitting Flexion w/Knee Flexed 116 Straight Leg Raise 45 Abduction 28 Internal Rotation 20 External Rotation 30 PT-OP-L Special Tests Start: 09/15/21 17:04 Freq: Status: Active Protocol: Document 09/19/21 13:54 LRN (Rec: 09/19/21 14:44 LRN [id number]) Special Tests Lumbar Spine Special Tests Manual Traction Test Results Mild decreased in LBP with traction Straight Leg Raise Test Results + 45 L, - 55 R Comments Tight in Hamstrings Vertical Spine Loading Test Results negative PT-OP-M Strength Start: 09/15/21 17:04 Freq: Status: Active Protocol: Document 09/19/21 13:54 LRN (Rec: 09/19/21 14:44 LRN [id number]) Trunk Strength Trunk Manual Muscle Testing Core Stabilization Fair core stabilization with MMT of LE's. Hip Strength Hip Manual Muscle Testing Right Flexion (L2) 5 Normal Extension (S1) 4+ Good+ Adduction 3 Fair External Rotation 4+ Good+ Internal Rotation 4+ Good+ Left Flexion (L2) 5 Normal Extension (S1) 5 Normal Abduction 5 Normal Adduction 5 Normal External Rotation 3+ Fair+ Internal Rotation 4+ Good+ Comments Noted: L calf and thigh atrophy of ms. PT-OP-T Assessment and Plan Start: 09/15/21 17:04 Freq: Status: Active Protocol: Document 10/16/21 16:36 LRN (Rec: 10/20/21 16:40 LRN [id number]) Physical Therapy Assessment Goals Three Impairment Decreased functional gait ability Impairment Pt was able to walk 1/2 mile for management of his LBP Care Home Goal (LTG) Pt will be able to walk 1/2 mile at prior level of function to manage his back pain (10 minutes ~ 12 mile when walking 3 mph). 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 (09/22/21: Issued & reviewed Proper body mechanics for daily activities). STG Duration 09/26/21 (09/22/21: MET GOAL) Care Home Goal (LTG) Pt will be independent in a self care HEP of LB ex's to help manage his pain. (09/22/21: HEP: fig 4, Piriformis, lateral hip, HS/ neural stretch) LTG Duration 12/18/21 (09/22/21: Progressed) Assessment Summary Assessment Message received that pt called to cancel all remaining visits because he was unhappy with scheduling issue the week before. Pt was being progressed towards his goals, but most goals were not met due to early discharge. Physical Therapy Plan Discharge Physical Therapy Discharge Reasons Patient Request Discharge Comments Thank you for your referral.
== END 2021-10-22 09:04 | disposition home or self-care (01) ==
LOC: PHYS 10:30
PROVIDERS: PCP Nurse Practitioner; Referring Provider Nurse Practitioner; Visit Provider Nurse Practitioner
DX: M54.50 Low back pain, unspecified (principal); M62.81 Muscle weakness (generalized); M25.659 Stiffness of unspecified hip, not elsewhere classified; R29.898 Other symptoms and signs involving the musculoskeletal system
CPT/HCPCS: 97014; 97110; 97162; 97535; G0283

== ENCOUNTER → 2022-04-24 07:57 | Outpatient (CLI) | payer MEDICARE, OTHER, SELFPAY ==
[2022-04-24 10:18] LABS: Alanine Aminotransferase 55 IU/L (<50); Albumin 4.5 g/dL (3.5-5.0); Albumin Globulin Ratio 1.3 (1.0-2.8); Alkaline Phosphatase 63 U/L (38-126); Aspartate Aminotransferase 56 IU/L (17-59); BUN Creatinine Ratio 32.3 (6-22); Bilirubin Total 0.5 mg/dL (0.2-1.3); Blood Urea Nitrogen 31 mg/dL (9-20); Calcium 10.1 mg/dL (8.4-10.2); Carbon Dioxide 27 mmol/L (22-32); Chloride 102 mmol/L (98-107); Cholesterol 229 mg/dL (140-199); Estimated Glomerular Filt Rate > 60 mL/min (>60); Globulin 3.6 g/dL (1.7-4.1); Glucose 104 mg/dL (80-110); HDL Cholesterol 46 mg/dL (40-60); HEMOLYSIS 17 (0-50); LDL Cholesterol Calculated 120 mg/dL (<100); Potassium 4.9 mmol/L (3.4-5.1); Sodium 140 mmol/L (137-145); Total Protein 8.1 g/dL (6.3-8.2); Triglycerides 314 mg/dL (35-150)
[2022-04-24 10:38] LABS: Free T3, Triiodothyronine Free 3.14 pg/mL (2.77-5.27); Free T4, Direct Thyroxine 0.89 ng/dL (0.78-2.19)
[2022-04-24 10:51] LABS: Thyroid Stimulating Hormone 1.42 uIU/mL (0.47-4.68)
[2022-04-24 10:52] LABS: Prostate Specific Antigen 2.19 ng/mL (0.10-4.00)
[2022-04-24 10:56] LABS: Creatinine Urine Random 90.1 mg/dL
[2022-04-24 10:59] LABS: Microalbumi Creatinin Ratio Ur 9.9 ug/mg CR (<30); Microalbumin Urine Random 0.9 mg/dL (0-1.6)
== END ==
PROVIDERS: PCP Nurse Practitioner; Referring Provider Nurse Practitioner; Visit Provider Nurse Practitioner
DX: E03.9 Hypothyroidism, unspecified (principal); Z12.5 Encounter for screening for malignant neoplasm of prostate; E78.2 Mixed hyperlipidemia; I10 Essential (primary) hypertension; Z79.899 Other long term (current) drug therapy
CPT/HCPCS: 36415; 80053; 80061; 82043; 82570; 84153; 84439; 84443; 84481; G0103

== ENCOUNTER → 2022-05-07 13:38 | Outpatient (CLI) | payer MEDICARE, OTHER, SELFPAY ==
[2022-05-07 14:32] LABS: Add Manual Diff / Slide Review NO; Basophils Absolute Auto 0 /uL (0-100); Basophils Percent Auto 0.5 % (0-2); Eosinophils Absolute Auto 100 /uL (0-450); Eosinophils Percent Auto 0.9 % (2-4); Hematocrit 42.1 % (41-53); Hemoglobin 14.4 g/dL (13.5-17.5); Lymphocytes Absolute Auto 1200 /uL (1100-4500); Lymphocytes Percent Auto 18.3 % (25-40); Mean Corpuscular HGB Conc 34.2 % (30-36); Mean Corpuscular Volume 93.5 fL (80-100); Monocytes Absolute Auto 600 /uL (0-900); Monocytes Percent Auto 9.2 % (3-14); Neutrophils Absolute Auto 4700 /uL (1500-7000); Neutrophils Percent Auto 71.1 % (50-75); Platelet Count 224 X10^3/uL (150-400); Red Cell Distribution Width 13.1 % (11.6-14.8); White Blood Cell Count 6.6 X10^3/uL (4.5-11.0)
[2022-05-15 06:01] LABS: Testosterone Fr+Wkly bound 33.6 ng/dL (40.0-250.0); Testosterone, Total 88.3 ng/dL (264.0-916.0)
== END ==
PROVIDERS: PCP Nurse Practitioner; Referring Provider Nurse Practitioner; Visit Provider Nurse Practitioner
DX: R53.83 Other fatigue (principal)
CPT/HCPCS: 36415; 84403; 85025

== ENCOUNTER → 2022-06-01 10:15 | Outpatient (CLI) | payer MEDICARE, OTHER, SELFPAY ==
[2022-06-01 11:11] LABS: Add Manual Diff / Slide Review NO; Basophils Absolute Auto 0 /uL (0-100); Basophils Percent Auto 0.4 % (0-2); Eosinophils Absolute Auto 0 /uL (0-450); Eosinophils Percent Auto 0.3 % (2-4); Hematocrit 43.3 % (41-53); Hemoglobin 14.8 g/dL (13.5-17.5); Lymphocytes Absolute Auto 1100 /uL (1100-4500); Mean Corpuscular HGB Conc 34.2 % (30-36); Mean Corpuscular Volume 93.6 fL (80-100); Monocytes Absolute Auto 600 /uL (0-900); Monocytes Percent Auto 9.7 % (3-14); Neutrophils Absolute Auto 4800 /uL (1500-7000); Neutrophils Percent Auto 72.6 % (50-75); Platelet Count 233 X10^3/uL (150-400); Red Blood Cell Count 4.63 X10^6/uL (4.5-5.9); Red Cell Distribution Width 13.5 % (11.6-14.8); White Blood Cell Count 6.7 X10^3/uL (4.5-11.0)
[2022-06-01 11:31] LABS: Erythrocyte Sedimentation Rate 7 MM/HR (0-15)
[2022-06-01 11:35] LABS: Alanine Aminotransferase 49 IU/L (<50); Albumin 4.5 g/dL (3.5-5.0); Albumin Globulin Ratio 1.6 (1.0-2.8); Alkaline Phosphatase 50 U/L (38-126); Aspartate Aminotransferase 37 IU/L (17-59); BUN Creatinine Ratio 23.2 (6-22); Bilirubin Total 0.5 mg/dL (0.2-1.3); Blood Urea Nitrogen 19 mg/dL (9-20); Calcium 9.1 mg/dL (8.4-10.2); Carbon Dioxide 27 mmol/L (22-32); Chloride 106 mmol/L (98-107); Estimated Glomerular Filt Rate > 60 mL/min (>60); Globulin 2.8 g/dL (1.7-4.1); Glucose 103 mg/dL (80-110); HEMOLYSIS < 15 (0-50); Potassium 4.1 mmol/L (3.4-5.1); Sodium 141 mmol/L (137-145); Total Protein 7.3 g/dL (6.3-8.2); Uric Acid 5.7 mg/dL (3.5-8.5)
[2022-06-01 11:39] LABS: Rheumatoid Factor < 8.6 IU/mL (<12.0)
== END ==
PROVIDERS: PCP Nurse Practitioner; Referring Provider Nurse Practitioner Family; Visit Provider Nurse Practitioner Family
DX: M79.641 Pain in right hand (principal); M79.642 Pain in left hand; M15.4 Erosive (osteo)arthritis
CPT/HCPCS: 36415; 80053; 84550; 85025; 85651; 86430

== ENCOUNTER → 2022-07-10 10:28 | Outpatient (CLI) | payer MEDICARE, OTHER, SELFPAY ==
[2022-07-10 12:11] LABS: Testosterone 144 ng/dL (71.8-623)
== END ==
PROVIDERS: PCP Nurse Practitioner; Referring Provider Nurse Practitioner; Visit Provider Nurse Practitioner
DX: E29.1 Testicular hypofunction (principal); Z79.899 Other long term (current) drug therapy
CPT/HCPCS: 36415; 84403

== ENCOUNTER → 2022-09-22 08:38 | Outpatient (CLI) | payer MEDICARE, OTHER, SELFPAY ==
[2022-09-28 00:48] LABS: Percent Free Testosterone 3.54 % (1.50-4.20); Testosterone Free 5.65 ng/dL (5.00-21.00); Testosterone Total 159.7 ng/dL (264.0-916.0)
== END ==
PROVIDERS: PCP Nurse Practitioner; Referring Provider Specialist; Visit Provider Specialist
DX: E29.1 Testicular hypofunction (principal)
CPT/HCPCS: 36415; 84402; 84403

== ENCOUNTER → 2022-10-30 13:54 | Outpatient (CLI) | payer MEDICARE, OTHER, SELFPAY ==
[2022-10-30 15:05] LABS: Add Manual Diff / Slide Review NO; Basophils Absolute Auto 0 /uL (0-100); Basophils Percent Auto 0.4 % (0-2); Eosinophils Absolute Auto 100 /uL (0-450); Eosinophils Percent Auto 1.2 % (2-4); Hematocrit 45.8 % (41-53); Hemoglobin 15.9 g/dL (13.5-17.5); Lymphocytes Absolute Auto 1300 /uL (1100-4500); Lymphocytes Percent Auto 17.5 % (25-40); Mean Corpuscular HGB Conc 34.7 % (30-36); Mean Corpuscular Hemoglobin 32.1 PG (26-34); Mean Corpuscular Volume 92.6 fL (80-100); Monocytes Absolute Auto 600 /uL (0-900); Monocytes Percent Auto 8.5 % (3-14); Neutrophils Absolute Auto 5300 /uL (1500-7000); Neutrophils Percent Auto 72.4 % (50-75); Platelet Count 235 X10^3/uL (150-400); Red Blood Cell Count 4.95 X10^6/uL (4.5-5.9); White Blood Cell Count 7.3 X10^3/uL (4.5-11.0)
[2022-10-30 19:58] LABS: Prostate Specific Antigen 3.08 ng/mL (0.10-4.00)
[2022-11-06 07:57] LABS: Percent Free Testosterone 3.75 % (1.50-4.20); Testosterone Free 21.94 ng/dL (5.00-21.00)
== END ==
PROVIDERS: PCP Nurse Practitioner; Referring Provider Specialist; Visit Provider Specialist
DX: Z79.899 Other long term (current) drug therapy (principal); R39.9 Unspecified symptoms and signs involving the genitourinary system; E29.1 Testicular hypofunction
CPT/HCPCS: 36415; 84153; 84402; 84403; 85025

== ENCOUNTER 2023-02-23 13:21 | Emergency (ER) | payer MEDICARE, OTHER, SELFPAY ==
[2023-02-23] VITALS (9 sets, daily range): BP systolic 145–196; BP diastolic 69–92; PULSE 67–77; RESP 14–22; TEMP 36.6; O2SAT 94–98; BMI 29.0
--- NOTE | 2023-02-23 13:38 | DI.RAD.S_ITS ---
PROCEDURE: XR CHEST 1V INDICATIONS: chest pain TECHNIQUE: One view of the chest was acquired. COMPARISON: None. FINDINGS: Surgical changes and devices: None. Lungs and pleura: Lungs are clear. No pleural effusions or pneumothorax. Mediastinum: Mediastinal contours appear normal. Heart size is normal. Bones and chest wall: No suspicious bony lesions. Overlying soft tissues appear unremarkable. IMPRESSION: No acute cardiopulmonary abnormality is seen. Approved by: Dexter Shannon M.D. on 02/23/2023 at 14:49
[2023-02-23 13:58] LABS: Add Manual Diff / Slide Review NO; Basophils Absolute Auto 0 /uL (0-100); Basophils Percent Auto 0.6 % (0-2); Eosinophils Absolute Auto 0 /uL (0-450); Eosinophils Percent Auto 0.3 % (2-4); Hematocrit 45.6 % (41-53); Hemoglobin 15.7 g/dL (13.5-17.5); Lymphocytes Absolute Auto 1000 /uL (1100-4500); Lymphocytes Percent Auto 17.5 % (25-40); Mean Corpuscular HGB Conc 34.5 % (30-36); Mean Corpuscular Hemoglobin 32.5 PG (26-34); Monocytes Absolute Auto 300 /uL (0-900); Monocytes Percent Auto 5.6 % (3-14); Neutrophils Absolute Auto 4500 /uL (1500-7000); Platelet Count 238 X10^3/uL (150-400); Red Blood Cell Count 4.85 X10^6/uL (4.5-5.9); Red Cell Distribution Width 13.5 % (11.6-14.8); White Blood Cell Count 5.9 X10^3/uL (4.5-11.0)
[2023-02-23 14:06] LABS: Prothrombin Time 11.7 SECONDS (9.4-12.5)
[2023-02-23 14:08] LABS: PTT Partial Thromboplastin Tim 29 SECONDS (25.1-36.5)
[2023-02-23 14:14] LABS: Alanine Aminotransferase 33 IU/L (<50); Albumin 4.2 g/dL (3.5-5.0); Albumin Globulin Ratio 1.3 (1.0-2.8); Alkaline Phosphatase 58 U/L (38-126); Aspartate Aminotransferase 35 IU/L (17-59); BUN Creatinine Ratio 16.9 (6-22); Blood Urea Nitrogen 15 mg/dL (9-20); Calcium 9.8 mg/dL (8.4-10.2); Carbon Dioxide 28 mmol/L (22-32); Chloride 102 mmol/L (98-107); Creatine Kinase 144 U/L (55-170); Estimated Glomerular Filt Rate > 60 mL/min (>60); Globulin 3.2 g/dL (1.7-4.1); Glucose 157 mg/dL (80-110); HEMOLYSIS 34 (0-50); Lipase 303 U/L (23-300); Magnesium 1.8 mg/dL (1.6-2.3); Potassium 3.9 mmol/L (3.4-5.1); Sodium 138 mmol/L (137-145); Total Protein 7.4 g/dL (6.3-8.2)
[2023-02-23 14:26] LABS: Troponin I < 0.012 ng/mL (0.01-0.034)
--- NOTE | 2023-02-23 14:54 | ED_ITS ---
HPI - General Adult General Chief complaint: Hypertension Stated complaint: high BP, dizzines sent by provider Time Seen by Provider: 02/23/23 14:15 Source: patient Mode of arrival: Ambulatory History of Present Illness HPI narrative: 72-year-old male with history of hypertension presents for uncontrolled blood pressures at home and lightheadedness on position changes. Patient has been checking his blood pressure multiple times at home and despite being compliant with his medications he frequently has blood pressures greater than systolic 160 at home. Yesterday after performing tasks around the house he felt lightheaded in his checked his blood pressure and it was 180 systolic. He was told by his primary care doctor's office to come to the emergency department, but he waited until today. Patient states he feels like his ears are ringing loudly, denies blurred vision, headache, chest pain, shortness of breath, leg swelling, other complaints at this time. Related Data Previous Rx's Medication Instructions Recorded lidocaine 5 % topical patch 1 patch topical DAILY #30 ea 06/02/21 betamethasone valerate 0.1 % See Rx Instructions .Route 04/29/22 topical cream .COMPLEX #15 grams omega-3 acid ethyl esters 1 gram 1 cap PO BID #180 caps 04/29/22 capsule (Lovaza) cyclobenzaprine 10 mg tablet 10 mg PO BEDTIME PRN muscle spasm 05/05/22 #60 tabs losartan 50 mg tablet See Rx Instructions .Route 06/08/22 .COMPLEX #90 tabs allopurinol 100 mg tablet See Rx Instructions .Route 09/03/22 .COMPLEX #180 tabs sildenafil 100 mg tablet See Rx Instructions .Route 10/01/22 .COMPLEX #30 tabs testosterone 12.5 mg/1.25 gram per 4 pump transdermal QAM #300 grams 10/01/22 pump actuation (1%) transdermal gel dicyclomine 20 mg tablet 20 mg PO TID PRN for pain #90 tabs 10/30/22 levothyroxine 100 mcg tablet See Rx Instructions .Route 11/17/22 .COMPLEX #90 tabs venlafaxine 37.5 mg See Rx Instructions .Route 12/07/22 capsule,extended release 24 hr .COMPLEX #270 caps amlodipine 5 mg tablet 5 mg PO DAILY #30 tabs 02/24/23 Allergies Allergy/AdvReac Type Severity Reaction Status Date / Time metronidazole [METRONIDAZOLE] Allergy Unknown Verified 02/24/23 11:45 diflunisal Allergy Verified 02/24/23 11:45 PAIN MANAGEMENT CONTRACT Allergy Unknown Uncoded 02/24/23 11:45 Review of Systems Review of Systems Narrative: Negative except as noted above Patient History Medical History (Updated 02/24/23 @ 12:24 by June Long PA-C) Fatigue Testosterone deficiency in male Hypogonadism in male Lumbar back pain White coat syndrome with diagnosis of hypertension Dental abscess Lower urinary tract symptoms (LUTS) Chronic kidney disease Sinusitis Pulmonary nodule Discoloration of skin of face Peripheral neuropathy Osteoarthritis Arthralgia Gout Peripheral neuropathy, idiopathic Colon polyps (2006) Hyperlipidemia Hypertension Hypothyroidism (2012) Chronic back pain Gout (2009) Sleep apnea Osteoarthritis Chronic sinusitis (2015) 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) Polyp of colon (01/01/14) Surgical History History of arthroscopy of left knee History of surgery History of lumbar surgery History of bilateral carpal tunnel release Social History Smoking Status: Current every day smoker Smoking Status: Current every day smoker tobacco type: vaping alcohol intake frequency: holidays/special occasions only Substance Use Type: marijuana Exam Initial Vital Signs Initial Vital Signs: Vital Signs Temperature 98 F 02/23/23 13:31 Pulse Rate 74 02/23/23 13:31 Respiratory Rate 18 02/23/23 13:31 Blood Pressure 196/92 H 02/23/23 13:31 Pulse Oximetry 98 02/23/23 13:31 Oxygen Delivery Method Room Air 02/23/23 13:31 Const: Awake, alert, no acute distress, nontoxic appearing Eyes: PERRL, EOMI, conjunctiva normal ENT: Atraumatic, tympanic membranes normal, mucous membranes moist Cardiac: regular rate, regular rhythm RESP: unlabored, clear bilaterally, no wheezing GI: Atraumatic, soft, nontender, nondistended, no rebound, no guarding MSK: Atraumatic, full range of motion, pulses equal Skin: Warm, Dry, intact, no rashes Neuro: AO x3, CN II-XII grossly intact, moves all extremities Psych: affect normal, mood normal, not suicidal, not homicidal Course Orders Ordered: ED Orders 02/23/23 13:38 XR chest 1V Stat 02/23/23 13:45 Complete Blood Count AUTO DIFF Stat Comprehensive Metabolic Panel Stat Lipase Stat Magnesium Stat PTT Partial Thromboplastin Adan Stat Prothrombin Time INR Stat Troponin & CK Cardiac Panel Stat 02/23/23 14:18 EKG-12 Lead Stat Vital Signs Vital signs: Vital Signs - 8 hr 02/23/23 13:31 02/23/23 13:57 02/23/23 13:58 Temperature 98 F Pulse Rate 74 77 74 Pulse Rate [Orthostatic Lying] Pulse Rate [Orthostatic Sitting] Pulse Rate [Orthostatic Standing] Respiratory Rate 18 22 Blood Pressure 196/92 H Blood Pressure [Orthostatic Lying] Blood Pressure [Orthostatic Sitting] Blood Pressure [Orthostatic Standing] Pulse Oximetry 98 96 95 Oxygen Delivery Method Room Air 02/23/23 13:58 02/23/23 14:00 02/23/23 14:00 Temperature Pulse Rate 69 Pulse Rate [Orthostatic Lying] Pulse Rate [Orthostatic Sitting] Pulse Rate [Orthostatic Standing] Respiratory Rate 15 Blood Pressure 158/69 H 145/72 H Blood Pressure [Orthostatic Lying] Blood Pressure [Orthostatic Sitting] Blood Pressure [Orthostatic Standing] Pulse Oximetry 96 Oxygen Delivery Method 02/23/23 14:30 02/23/23 14:30 02/23/23 14:54 Temperature Pulse Rate 68 67 Pulse Rate [Orthostatic Lying] Pulse Rate [Orthostatic Sitting] Pulse Rate [Orthostatic Standing] Respiratory Rate 19 14 Blood Pressure 156/75 H Blood Pressure [Orthostatic Lying] Blood Pressure [Orthostatic Sitting] Blood Pressure [Orthostatic Standing] Pulse Oximetry 94 95 Oxygen Delivery Method 02/23/23 14:54 02/23/23 14:56 02/23/23 14:56 Temperature Pulse Rate 70 Pulse Rate [Orthostatic Lying] Pulse Rate [Orthostatic Sitting] Pulse Rate [Orthostatic Standing] Respiratory Rate 18 Blood Pressure 164/77 H 152/77 H Blood Pressure [Orthostatic Lying] Blood Pressure [Orthostatic Sitting] Blood Pressure [Orthostatic Standing] Pulse Oximetry 94 Oxygen Delivery Method 02/23/23 14:57 Temperature Pulse Rate Pulse Rate [Orthostatic Lying] 68 Pulse Rate [Orthostatic Sitting] 72 Pulse Rate [Orthostatic Standing] 69 Respiratory Rate Blood Pressure Blood Pressure [Orthostatic Lying] 164/77 H Blood Pressure [Orthostatic Sitting] 149/74 H Blood Pressure [Orthostatic Standing] 154/80 H Pulse Oximetry Oxygen Delivery Method Medical Decision Making Differential Diagnosis Differential Diagnosis: Hypertensive urgency, asymptomatic hypertension, tinnitus Lab Data 02/23/23 13:45 02/23/23 13:45 Labs: Lab Results 02/23/23 Range/Units 13:45 WBC 5.9 (4.5-11.0) X10^3/uL RBC 4.85 (4.5-5.9) X10^6/uL Hgb 15.7 (13.5-17.5) g/dL Hct 45.6 (41-53) % MCV 94.0 (80-100) fL MCH 32.5 (26-34) PG MCHC 34.5 (30-36) % RDW 13.5 (11.6-14.8) % Plt Count 238 (150-400) X10^3/uL Neut % (Auto) 76.0 H (50-75) % Lymph % (Auto) 17.5 L (25-40) % [place] % (Auto) 5.6 (3-14) % Eos % (Auto) 0.3 L (2-4) % Baso % (Auto) 0.6 (0-2) % Neut # (Auto) 4500 (6805-7914) /uL Lymph # (Auto) 1000 L (5711-6476) /uL [place] # (Auto) 300 (0-900) /uL Eos # (Auto) 0 (0-450) /uL Baso # (Auto) 0 (0-100) /uL PT 11.7 (9.4-12.5) SECONDS INR 1.0 (0.9-1.3) APTT 29 (25.1-36.5) SECONDS Sodium 138 (137-145) mmol/L Potassium 3.9 (3.4-5.1) mmol/L Chloride 102 (98-107) mmol/L Carbon Dioxide 28 (22-32) mmol/L BUN 15 (9-20) mg/dL Creatinine 0.89 (0.66-1.25) mg/dL Estimated GFR > 60 (>60) mL/min BUN/Creatinine Ratio 16.9 (6-22) Glucose 157 H (80-110) mg/dL Calcium 9.8 (8.4-10.2) mg/dL Magnesium 1.8 (1.6-2.3) mg/dL Total Bilirubin 1.0 (0.2-1.3) mg/dL AST 35 (17-59) IU/L ALT 33 (<50) IU/L Alkaline Phosphatase 58 (38-126) U/L Total Creatine Kinase 144 (55-170) U/L Troponin I < 0.012 (0.01-0.034) ng/mL Total Protein 7.4 (6.3-8.2) g/dL Albumin 4.2 (3.5-5.0) g/dL Globulin 3.2 (1.7-4.1) g/dL Albumin/Globulin Ratio 1.3 (1.0-2.8) Lipase 303 H (23-300) U/L MDM Narrative Medical decision making narrative: Well-appearing patient with intermittent lightheaded sensation after changing position and hypertension. Patient does not have any signs or symptoms of organ damage. He says he feels lightheaded, but gait evaluation is steady without ataxia. Laboratory work is reviewed, no evidence of end-organ damage. I offered to titrate patient's blood pressure medications, however he states that he is a primary care doctor's appointment tomorrow and we will talk to his primary care doctor about adjusting his medications in the meantime. ED return precautions discussed at bedside. Patient expressed understanding of the plan and is in agreement at this time. All questions answered at the time of discharge. Discharge Plan Departure Patient Disposition: Home Clinical Impression: Hypertension Instructions: DI for High Blood Pressure Prescriptions: No Action cyclobenzaprine 10 mg tablet 10 mg PO BEDTIME PRN (Reason: muscle spasm) Qty: 60 3RF Rx Instructions: Take 1 tab at bedtime daily as needed for muscle spasms PA approved 04/04/22 until further notice Auth [id number] losartan 50 mg tablet See Rx Instructions .ROUTE .COMPLEX Qty: 90 3RF Dose Instruction: TAKE 1 TABLET BY MOUTH DAILY FOR BLOOD PRESSURE GOAL LESS THAN 140/90 CONSISTENTLY Rx Instructions: TAKE 1 TABLET BY MOUTH DAILY FOR BLOOD PRESSURE GOAL LESS THAN 140/90 CONSISTENTLY allopurinol 100 mg tablet See Rx Instructions .ROUTE .COMPLEX Qty: 180 3RF Dose Instruction: TAKE 2 TABLETS(200 MG) BY MOUTH DAILY Rx Instructions: TAKE 2 TABLETS(200 MG) BY MOUTH DAILY testosterone 12.5 mg/ 1.25 gram (1 %) gel in metered-dose pump 4 pump transdermal QAM Qty: 300 3RF Rx Instructions: Apply to rotating areas of skin each morning after showering and thoroughly drying, as directed. sildenafil 100 mg tablet See Rx Instructions .ROUTE .COMPLEX Qty: 30 3RF Dose Instruction: take 0.25-1 tablet by mouth once daily 30 MINUTES to 4 hours prior to intercourse if needed Rx Instructions: take 0.25-1 tablet by mouth once daily 30 MINUTES to 4 hours prior to intercourse if needed dicyclomine 20 mg tablet 20 mg PO TID PRN (Reason: for pain) Qty: 90 0RF levothyroxine 100 mcg tablet See Rx Instructions .ROUTE .COMPLEX Qty: 90 1RF Dose Instruction: TAKE 1 TABLET(100 MCG) BY MOUTH DAILY FOR HYPOTHYROIDISM Rx Instructions: TAKE 1 TABLET(100 MCG) BY MOUTH DAILY FOR HYPOTHYROIDISM venlafaxine 37.5 mg capsule,extended release 24hr See Rx Instructions .ROUTE .COMPLEX Qty: 270 0RF Dose Instruction: TAKE 3 CAPSULES(112.5 MG) BY MOUTH EVERY EVENING Rx Instructions: TAKE 3 CAPSULES(112.5 MG) BY MOUTH EVERY EVENING lidocaine 5 % adhesive patch,medicated 1 patch topical DAILY Qty: 30 2RF Rx Instructions: leave on most painful area of back for up to 12 hrs, take off x12 hours omega-3 acid ethyl esters [Lovaza] 1 gram capsule 1 cap PO BID Qty: 180 2RF Rx Instructions: Take 1 capsule twice per day betamethasone valerate 0.1 % cream See Rx Instructions .ROUTE .COMPLEX Qty: 15 3RF Dose Instruction: APPLY TOPICALLY TO THE AFFECTED AREA TWICE DAILY Rx Instructions: APPLY TOPICALLY TO THE AFFECTED AREA TWICE DAILY amlodipine 5 mg tablet 5 mg PO DAILY Qty: 30 1RF Rx Instructions: Take one tablet once daily with Losartan for high blood pressure Referrals: Odalys Prado ARNP [Primary Care Provider] - Stand Alone Forms: Patient Portal/API
--- NOTE | 2023-02-23 14:58 | PC.NURSE ---
Dr. Coley notified of orthostatics; pt denies cp/sob/dizziness.
--- NOTE | 2023-02-23 15:00 | PC.NURSE ---
and pt reports pcp appt tomorrow, encouraged to f/u about medications for htn. both verbalized understanding.
== END 2023-02-23 15:36 | disposition home or self-care (01) ==
PROVIDERS: Emergency Provider Emergency Medicine; PCP Nurse Practitioner
DX: I10 Essential (primary) hypertension (principal); F17.290 Nicotine dependence, other tobacco product, uncomplicated
CPT/HCPCS: 36415; 71045; 80053; 82550; 83690; 83735; 84484; 85025; 85610; 85730; 93005; 99283; 99284

== ENCOUNTER → 2023-04-19 10:14 | Outpatient (CLI) | payer MEDICARE, OTHER, SELFPAY ==
[2023-04-19 11:31] LABS: Add Manual Diff / Slide Review NO; Basophils Absolute Auto 0 /uL (0-100); Basophils Percent Auto 0.4 % (0-2); Eosinophils Absolute Auto 0 /uL (0-450); Eosinophils Percent Auto 0.3 % (2-4); Hematocrit 46.5 % (41-53); Hemoglobin 16.1 g/dL (13.5-17.5); Lymphocytes Absolute Auto 1300 /uL (1100-4500); Lymphocytes Percent Auto 16.1 % (25-40); Mean Corpuscular HGB Conc 34.7 % (30-36); Mean Corpuscular Hemoglobin 32.9 PG (26-34); Mean Corpuscular Volume 94.6 fL (80-100); Monocytes Absolute Auto 800 /uL (0-900); Monocytes Percent Auto 9.6 % (3-14); Neutrophils Absolute Auto 5800 /uL (1500-7000); Neutrophils Percent Auto 73.6 % (50-75); Platelet Count 260 X10^3/uL (150-400); Red Blood Cell Count 4.91 X10^6/uL (4.5-5.9); Red Cell Distribution Width 13.3 % (11.6-14.8); White Blood Cell Count 7.9 X10^3/uL (4.5-11.0)
[2023-04-19 12:52] LABS: Prostate Specific Antigen 3.05 ng/mL (0.10-4.00)
== END ==
PROVIDERS: PCP Nurse Practitioner; Referring Provider Specialist; Visit Provider Specialist
DX: E29.1 Testicular hypofunction (principal); R39.9 Unspecified symptoms and signs involving the genitourinary system
CPT/HCPCS: 36415; 84153; 85025

== ENCOUNTER → 2023-04-22 13:38 | Outpatient (CLI) | payer MEDICARE, OTHER, SELFPAY ==
[2023-04-22 14:19] LABS: Alanine Aminotransferase 42 IU/L (<50); Albumin 4.7 g/dL (3.5-5.0); Albumin Globulin Ratio 1.5 (1.0-2.8); Alkaline Phosphatase 59 U/L (38-126); Aspartate Aminotransferase 45 IU/L (17-59); BUN Creatinine Ratio 18.4 (6-22); Blood Urea Nitrogen 19 mg/dL (9-20); Carbon Dioxide 26 mmol/L (22-32); Chloride 98 mmol/L (98-107); Estimated Glomerular Filt Rate > 60 mL/min (>60); Globulin 3.1 g/dL (1.7-4.1); Glucose 107 mg/dL (80-110); HEMOLYSIS < 15 (0-50); Magnesium 1.9 mg/dL (1.6-2.3); Potassium 4.4 mmol/L (3.4-5.1); Sodium 135 mmol/L (137-145); Total Protein 7.8 g/dL (6.3-8.2)
[2023-04-22 14:35] LABS: Free T3, Triiodothyronine Free 3.52 pg/mL (2.77-5.27); Free T4, Direct Thyroxine 1.29 ng/dL (0.78-2.19)
[2023-04-22 14:49] LABS: Thyroid Stimulating Hormone 1.07 uIU/mL (0.47-4.68)
== END ==
PROVIDERS: PCP Nurse Practitioner; Referring Provider Nurse Practitioner; Visit Provider Nurse Practitioner
DX: R42 Dizziness and giddiness (principal)
CPT/HCPCS: 36415; 80053; 83735; 84439; 84443; 84481

== ENCOUNTER → 2023-05-05 14:29 | Outpatient (CLI) | payer MEDICARE, OTHER, SELFPAY | LOC: CAR 14:30 | PROVIDERS: PCP Nurse Practitioner; Referring Provider Nurse Practitioner; Visit Provider Nurse Practitioner | DX: R42 Dizziness and giddiness (principal); I10 Essential (primary) hypertension | CPT/HCPCS: 93242 ==

== ENCOUNTER → 2023-05-28 09:03 | Outpatient (CLI) | payer MEDICARE, OTHER, SELFPAY ==
--- NOTE | 2023-05-28 09:04 | DI.US.S_ITS ---
PROCEDURE: US ABD AORTA ANEURYSM SCREEN INDICATIONS: DIZZINESS, HYPERTENSION, HYPERLIPIDEMIA TECHNIQUE: Real time scanning was performed of the aorta and iliac arteries, with image documentation. COMPARISON: [facility], , ABD AORTA ANEURYSM SCREEN, 04/13/2018, 12:04. FINDINGS: Aorta: Proximal aorta is not visualized. Mid-aorta measures 2.3 cm. Distal aortic diameter is 1.8 cm. Iliac arteries: Right common iliac artery measures 1.0 cm. Left common iliac artery measures 1.0 cm. IMPRESSION: No abdominal aortic ectasia or aneurysm. Dictated by: Rowan Stiles M.D. on 05/28/2023 at 15:40 Approved by: Rowan Stiles M.D. on 05/28/2023 at 15:41
--- NOTE | 2023-05-28 09:04 | DI.ECHO.S_ITS ---
[facility] +---------+ : : [address] : : : : [id number] : : : : Phone: [phone]---------+ Echocardiogram Report + + :Name: DELFINO OLVERA Study Date: 05/28/2023 Height: 66 in : :[facility] ReadingLocation: Weight: 177 lb : : Gender: Male BSA: 1.9 m2 : :: 1950 Age: 72 yrs BP: 162/92 mmHg: :Reason For Study: DIZZINESS : :Ordering Physician: LON, : :HARJIT Performed By: Murphy Cisse : :Referring: HARJIT FORREST : + + Interpretation Summary The left ventricle is normal in size. Left ventricular systolic function appears normal without focal wall motion abnormalities. The ejection fraction is estimated to be 60-65%. Diastolic parameters suggest a relaxation abnormality of the left ventricle, consistent with probable normal filling pressures. The right ventricle is normal in size and function. The right ventricular systolic pressure is estimated to be at least 29 mmHg based on an estimated right atrial pressure of 3 mm Hg. The left atrial size is normal. 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 The interatrial septum grossly appears intact with no obvious evidence for an atrial septal defect. There is mild to moderate aortic regurgitation. There is no other significant valvular heart disease. The aortic root is normal size. Procedure: A two-dimensional transthoracic echocardiogram with color flow and Doppler was performed. The study quality was technically adequate. There is no prior echocardiogram noted for this patient. The patient was in normal sinus rhythm during the exam. The heart rate ranged between 67-77 bpm during the study. Left Ventricle: The left ventricle is normal in size. There is mild concentric left ventricular hypertrophy. Left ventricular systolic function appears normal without focal wall motion abnormalities. The ejection fraction is estimated to be 60-65%. Diastolic parameters suggest a relaxation abnormality of the left ventricle, consistent with probable normal filling pressures. Right Ventricle: The right ventricle is normal in size and function. Atria: The left atrial size is normal. Right atrial size is normal. 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 The interatrial septum grossly appears intact with no obvious evidence for an atrial septal defect. Mitral Valve: The mitral valve is normal in structure and function. There is no mitral valve stenosis. There is trace mitral regurgitation. Aortic Valve: The aortic valve is trileaflet. The aortic valve is slightly calcified. There is no aortic valve stenosis. There is mild to moderate aortic regurgitation. Tricuspid Valve: The tricuspid valve is normal in structure and function. There is no tricuspid stenosis. There is mild tricuspid regurgitation. The right ventricular systolic pressure is estimated to be at least 29 mmHg based on an estimated right atrial pressure of 3 mm Hg. Pulmonic Valve: The pulmonic valve is not well visualized. There is no pulmonic valvular stenosis. There is a trace or physiologic amount of pulmonic regurgitation. There is no other significant valvular heart disease. Great Vessels: The aortic root is normal size. The dimensions of the ascending aorta are normal. The IVC is of normal diameter and collapses greater than 50% with a sniff. This suggests a low right atrial pressure of 3 mm Hg. Pericardium/ Pleura There is no pericardial effusion. There is no pleural effusion. MMode/2D Measurements & Calculations LVIDd: 3.5 cm LVOT diam: 1.9 cm LVIDs: 2.5 cm Ao root diam: 2.9 cm FS: 30.6 % asc Aorta Diam: 3.1 cm IVSd: 1.3 cm LVPWd: 1.1 cm LV flood. diameter/BSA (cm/m^2): 1.9 LV sys. diameter/BSA (cm/m^2): 1.3 LA A2 area: 13.6 cm2 RA long axis: 4.1 cm LA A4 area: 14.2 cm2 RA area: 12.7 cm2 LA length (vol): 4.7 cm RA vol: 33.4 ml LA vol: 34.7 ml RA : 17.6 ml/m2 LA vol index: 18.3 ml/m2 IVC diam: 1.1 cm RVD1 (basal): 3.0 cm RVD2 (mid): 2.5 cm TAPSE: 2.7 cm Doppler Measurements & Calculations Ao V2 max: 126.7 cm/sec LVOT Max Mihai: 122.7 cm/sec Ao V2 mean: 96.7 cm/sec LV V1 max P.0 mmHg Ao max P.4 mmHg LV V1 VTI: 28.8 cm Ao mean P.0 mmHg SHERI(I,D): 2.6 cm2 Ao V2 VTI: 30.5 cm SHERI(V,D): 2.6 cm2 sev ratio: 0.94 SHERI indexed to BSA (cm^2/m^2): 1.4 AI P1/2t: 485.1 msec AI dec slope: 243.9 cm/sec2 MV E max mihai: 59.6 cm/sec TR max mihai: 254.9 cm/sec MV A max mihai: 99.7 cm/sec TR max P.0 mmHg MV E/A: 0.60 PA V2 max: 104.2 cm/sec Med Peak E' Mihai: 6.4 cm/sec PA V2 mean: 61.1 cm/sec E/E' med: 9.2 PA mean P.8 mmHg Lat Peak E' Mihai: 6.6 cm/sec PA pr(Accel): 49.9 mmHg E/E' lat: 9.1 E/e' average: 9.2 MV dec time: 0.21 sec SV(LVOT): 78.5 ml Reading Physician:05:55 PM
== END ==
PROVIDERS: PCP Nurse Practitioner; Referring Provider Nurse Practitioner; Visit Provider Nurse Practitioner
DX: I10 Essential (primary) hypertension (principal); E78.5 Hyperlipidemia, unspecified; R42 Dizziness and giddiness; I08.2 Rheumatic disorders of both aortic and tricuspid valves
CPT/HCPCS: 76706; 93005; 93306

== ENCOUNTER → 2023-06-28 13:17 | Outpatient (CLI) | payer MEDICARE, OTHER, SELFPAY ==
--- NOTE | 2023-06-28 13:19 | DI.US.S_ITS ---
PROCEDURE: US CAROTID DOPPLER BI INDICATIONS: DIZZINESS TECHNIQUE: Color and pulse Doppler interrogation was performed of both carotid systems, with image documentation and velocity measurements. COMPARISON: [facility], , CAROTID ARTERY DOPPLER BIL, 12/12/2014, 12:32. FINDINGS: Stenosis calculations are based on SRU (Society of Radi[employer] in Ultras[employer]) criteria. The flow velocities and the arterial waveforms are normal within both carotid arterial systems. Atherosclerotic plaque is seen on the left. The estimated degree of internal carotid artery stenosis is less than 50%. Antegrade flow is confirmed within both vertebral arteries. IMPRESSION: No hemodynamically significant stenosis is seen. Similar to prior. Dictated by: Pito Cartagena M.D. on 06/28/2023 at 12:53 Approved by: Pito Cartagena M.D. on 06/28/2023 at 12:54
== END ==
PROVIDERS: PCP Nurse Practitioner; Referring Provider Nurse Practitioner; Visit Provider Nurse Practitioner
DX: R42 Dizziness and giddiness (principal)
CPT/HCPCS: 93880

== ENCOUNTER → 2023-10-07 07:52 | Outpatient (CLI) | payer MEDICARE, OTHER, SELFPAY ==
[2023-10-07 10:15] LABS: Add Manual Diff / Slide Review NO; Basophils Absolute Auto 0 /uL (0-100); Basophils Percent Auto 0.5 % (0-2); Eosinophils Absolute Auto 100 /uL (0-450); Eosinophils Percent Auto 1.3 % (2-4); Hematocrit 44.9 % (41-53); Hemoglobin 15.6 g/dL (13.5-17.5); Lymphocytes Absolute Auto 1000 /uL (1100-4500); Lymphocytes Percent Auto 16.6 % (25-40); Mean Corpuscular HGB Conc 34.9 % (30-36); Mean Corpuscular Hemoglobin 32.2 PG (26-34); Mean Corpuscular Volume 92.4 fL (80-100); Monocytes Absolute Auto 400 /uL (0-900); Monocytes Percent Auto 6.9 % (3-14); Neutrophils Absolute Auto 4300 /uL (1500-7000); Neutrophils Percent Auto 74.7 % (50-75); Platelet Count 243 X10^3/uL (150-400); Red Blood Cell Count 4.86 X10^6/uL (4.5-5.9); Red Cell Distribution Width 13.6 % (11.6-14.8); White Blood Cell Count 5.8 X10^3/uL (4.5-11.0)
[2023-10-07 10:30] LABS: Alanine Aminotransferase 43 IU/L (<50); Albumin 4.6 g/dL (3.5-5.0); Albumin Globulin Ratio 1.4 (1.0-2.8); Alkaline Phosphatase 66 U/L (38-126); Aspartate Aminotransferase 42 IU/L (17-59); BUN Creatinine Ratio 19.1 (6-22); Bilirubin Total 0.8 mg/dL (0.2-1.3); Blood Urea Nitrogen 18 mg/dL (9-20); Calcium 9.4 mg/dL (8.4-10.2); Carbon Dioxide 27 mmol/L (22-32); Chloride 107 mmol/L (98-107); Cholesterol 200 mg/dL (140-199); Estimated Glomerular Filt Rate > 60 mL/min (>60); Globulin 3.3 g/dL (1.7-4.1); Glucose 108 mg/dL (80-110); HDL Cholesterol 54 mg/dL (40-60); HEMOLYSIS < 15 (0-50); LDL Cholesterol Calculated 110 mg/dL (<100); Potassium 4.2 mmol/L (3.4-5.1); Sodium 141 mmol/L (137-145); Total Protein 7.9 g/dL (6.3-8.2); Triglycerides 178 mg/dL (35-150)
[2023-10-07 11:00] LABS: Microalbumin Urine Random 1.9 mg/dL (0-1.6)
[2023-10-07 11:01] LABS: Prostate Specific Antigen 3.55 ng/mL (0.10-4.00); Thyroid Stimulating Hormone 0.714 uIU/mL (0.47-4.68)
[2023-10-07 11:02] LABS: Testosterone 426 ng/dL (71.8-623)
== END ==
PROVIDERS: Specialist; PCP Nurse Practitioner; Referring Provider Nurse Practitioner; Visit Provider Nurse Practitioner
DX: Z51.81 Encounter for therapeutic drug level monitoring; R39.9 Unspecified symptoms and signs involving the genitourinary system; E78.1 Pure hyperglyceridemia; I10 Essential (primary) hypertension; E78.2 Mixed hyperlipidemia; E03.9 Hypothyroidism, unspecified; E29.1 Testicular hypofunction; M10.9 Gout, unspecified; Z79.890 Hormone replacement therapy
CPT/HCPCS: 36415; 80053; 80061; 82043; 82570; 84153; 84403; 84443; 84550; 85025

== ENCOUNTER → 2023-11-19 13:56 | Outpatient (CLI) | payer MEDICARE, OTHER, SELFPAY ==
[2023-11-19 15:05] LABS: Add Manual Diff / Slide Review NO; Basophils Absolute Auto 0 /uL (0-100); Basophils Percent Auto 0.7 % (0-2); Eosinophils Absolute Auto 100 /uL (0-450); Eosinophils Percent Auto 1.3 % (2-4); Hematocrit 43.3 % (41-53); Hemoglobin 15.2 g/dL (13.5-17.5); Lymphocytes Absolute Auto 1600 /uL (1100-4500); Lymphocytes Percent Auto 22.6 % (25-40); Mean Corpuscular HGB Conc 35.1 % (30-36); Mean Corpuscular Hemoglobin 32.9 PG (26-34); Mean Corpuscular Volume 93.7 fL (80-100); Monocytes Absolute Auto 600 /uL (0-900); Monocytes Percent Auto 8.3 % (3-14); Neutrophils Absolute Auto 4700 /uL (1500-7000); Neutrophils Percent Auto 67.1 % (50-75); Platelet Count 265 X10^3/uL (150-400); Red Blood Cell Count 4.62 X10^6/uL (4.5-5.9); Red Cell Distribution Width 14.1 % (11.6-14.8)
[2023-11-19 16:01] LABS: Prostate Specific Antigen 3.16 ng/mL (0.10-4.00)
== END ==
PROVIDERS: PCP Nurse Practitioner; Referring Provider Urology; Visit Provider Urology
DX: E29.1 Testicular hypofunction (principal)
CPT/HCPCS: 84153; 85025

== ENCOUNTER → 2023-11-24 09:30 | Outpatient (CLI) | payer MEDICARE, OTHER, SELFPAY | PROVIDERS: PCP Nurse Practitioner; Visit Provider Urology | DX: R39.9 Unspecified symptoms and signs involving the genitourinary system (principal) | CPT/HCPCS: 87086 ==

== ENCOUNTER → 2024-05-11 15:36 | Outpatient (CLI) | payer MEDICARE, OTHER, SELFPAY ==
[2024-05-11 15:54] LABS: Hematocrit 47.5 % (41-53)
[2024-05-11 17:34] LABS: Alanine Aminotransferase 50 IU/L (<50); Albumin Globulin Ratio 1.6 (1.0-2.8); Alkaline Phosphatase 63 U/L (38-126); Aspartate Aminotransferase 55 IU/L (17-59); Bilirubin Total 1.1 mg/dL (0.2-1.3); Bilirubin Unconjugated 0.6 mg/dL (0.0-1.1); Globulin 3.1 g/dL (1.7-4.1); HEMOLYSIS < 15 (0-50); Total Protein 8.1 g/dL (6.3-8.2)
[2024-05-11 18:05] LABS: Prostate Specific Antigen 3.65 ng/mL (0.10-4.00)
== END ==
LOC: LAB 15:37
PROVIDERS: PCP Nurse Practitioner Family; Referring Provider Urology; Visit Provider Urology
DX: E29.1 Testicular hypofunction (principal); R39.9 Unspecified symptoms and signs involving the genitourinary system
CPT/HCPCS: 36415; 80076; 84153; 85014

== ENCOUNTER → 2024-06-09 11:14 | Outpatient (CLI) | payer MEDICARE, OTHER, SELFPAY ==
[2024-06-09 12:51] LABS: Add Manual Diff / Slide Review NO; Basophils Absolute Auto 0 /uL (0-100); Basophils Percent Auto 0.7 % (0-2); Eosinophils Absolute Auto 0 /uL (0-450); Hematocrit 46.3 % (41-53); Lymphocytes Absolute Auto 900 /uL (1100-4500); Lymphocytes Percent Auto 23.9 % (25-40); Mean Corpuscular HGB Conc 34.5 % (30-36); Mean Corpuscular Hemoglobin 32.5 PG (26-34); Mean Corpuscular Volume 94.4 fL (80-100); Monocytes Absolute Auto 400 /uL (0-900); Monocytes Percent Auto 9.7 % (3-14); Neutrophils Absolute Auto 2400 /uL (1500-7000); Neutrophils Percent Auto 64.7 % (50-75); Platelet Count 244 X10^3/uL (150-400); Red Blood Cell Count 4.91 X10^6/uL (4.5-5.9); Red Cell Distribution Width 13.5 % (11.6-14.8); White Blood Cell Count 3.7 X10^3/uL (4.5-11.0)
[2024-06-09 13:00] LABS: Blood Urea Nitrogen 17 mg/dL (9-20); Carbon Dioxide 26 mmol/L (22-32); Chloride 102 mmol/L (98-107); Cholesterol 226 mg/dL (140-199); Estimated Glomerular Filt Rate > 60 mL/min (>60); Glucose 108 mg/dL (80-110); HDL Cholesterol 51 mg/dL (40-60); HEMOLYSIS < 15 (0-50); LDL Cholesterol Calculated 127 mg/dL (<100); Potassium 4.8 mmol/L (3.4-5.1); Sodium 139 mmol/L (137-145); Triglycerides 240 mg/dL (35-150)
[2024-06-09 13:44] LABS: TSH w/ Reflex to FT4 0.51 uIU/mL (0.47-4.68)
== END ==
PROVIDERS: PCP Nurse Practitioner Family; Referring Provider Nurse Practitioner Family; Visit Provider Nurse Practitioner Family
DX: E78.1 Pure hyperglyceridemia (principal); E78.5 Hyperlipidemia, unspecified; I10 Essential (primary) hypertension; E03.9 Hypothyroidism, unspecified; R53.83 Other fatigue; E29.1 Testicular hypofunction
CPT/HCPCS: 36415; 80048; 80061; 84443; 85025

== ENCOUNTER → 2024-09-15 10:57 | Outpatient (CLI) | payer MEDICARE, OTHER, SELFPAY ==
[2024-09-15 12:55] LABS: BUN Creatinine Ratio 20.2 (6-22); Blood Urea Nitrogen 20 mg/dL (9-20); Calcium 10.1 mg/dL (8.4-10.2); Carbon Dioxide 25 mmol/L (22-32); Chloride 102 mmol/L (98-107); Cholesterol 203 mg/dL (140-199); Estimated Glomerular Filt Rate > 60 mL/min (>60); Glucose 105 mg/dL (70-99); HDL Cholesterol 61 mg/dL (40-60); HEMOLYSIS < 15 (0-50); LDL Cholesterol Calculated 96 mg/dL (<100); Potassium 4.6 mmol/L (3.4-5.1); Sodium 138 mmol/L (137-145); Triglycerides 228 mg/dL (35-150)
[2024-09-15 13:38] LABS: Creatinine Urine Random 110.84 mg/dL
[2024-09-15 13:45] LABS: Microalbumin Urine Random 8.1 mg/dL (0-1.6)
== END ==
PROVIDERS: PCP Nurse Practitioner Family; Referring Provider Nurse Practitioner Family; Visit Provider Nurse Practitioner Family
DX: E78.5 Hyperlipidemia, unspecified (principal); I10 Essential (primary) hypertension
CPT/HCPCS: 36415; 80048; 80061; 82043; 82570

== ENCOUNTER → 2025-03-07 10:42 | Outpatient (CLI) | payer MEDICARE, OTHER, SELFPAY ==
[2025-03-07 11:10] LABS: Hematocrit 44.0 % (41-53)
[2025-03-07 11:24] LABS: Cholesterol 165 mg/dL (140-199); HDL Cholesterol 69 mg/dL (40-60); Triglycerides 141 mg/dL (35-150)
[2025-03-07 11:25] LABS: Alanine Aminotransferase 43 IU/L (<50); Albumin 4.9 g/dL (3.5-5.0); Albumin Globulin Ratio 1.7 (1.0-2.8); Alkaline Phosphatase 63 U/L (38-126); Blood Urea Nitrogen 15 mg/dL (9-20); Calcium 9.8 mg/dL (8.4-10.2); Carbon Dioxide 27 mmol/L (22-32); Chloride 104 mmol/L (98-107); Estimated Glomerular Filt Rate > 60 mL/min (>60); Globulin 2.9 g/dL (1.7-4.1); Glucose 102 mg/dL (70-99); HEMOLYSIS < 15 (0-50); Potassium 4.0 mmol/L (3.4-5.1); Sodium 143 mmol/L (137-145); Total Protein 7.8 g/dL (6.3-8.2)
[2025-03-07 11:54] LABS: Prostate Specific Antigen 3.28 ng/mL (0.10-4.00)
== END ==
PROVIDERS: PCP Nurse Practitioner Family; Referring Provider Nurse Practitioner Family; Visit Provider Urology
DX: E29.1 Testicular hypofunction (principal); E78.5 Hyperlipidemia, unspecified
CPT/HCPCS: 36415; 80053; 80061; 84153; 84403; 85014